=== PATIENT | female | born 1945 | race Two or more races ===

== ENCOUNTER → 2020-09-12 12:15 | Outpatient (BNVA) | payer MEDICARE, MEDICAID, SELFPAY | PROVIDERS: PCP Physician Assistant; Referring Provider Physician Assistant; Visit Provider Internal Medicine Endocrinology, Diabetes & Metabolism | DX: E03.9 Hypothyroidism, unspecified (principal); E06.3 Autoimmune thyroiditis | CPT/HCPCS: 99212 ==

== ENCOUNTER 2021-01-14 10:59 | Outpatient (REF) | payer MEDICARE, MEDICAID, SELFPAY ==
--- NOTE | ~2021-01-14 | XR_ITS ---
EXAMINATION: XR SHOULDER, LEFT CLINICAL INFORMATION: Pain COMPARISON: 11/10/2018 TECHNIQUE: AP external rotation, Grashey, scapular Y, and axillary views of the left shoulder. FINDINGS: No acute fracture or dislocation. Marginal osteophytes of the acromioclavicular and glenohumeral joints. Deltoid tendon original enthesopathy. Soft tissues unremarkable. XR/XR shoulder LT min 2V IMPRESSION: No acute findings. Marginal osteophytes of the glenohumeral and acromioclavicular joints.
--- NOTE | ~2021-01-14 | XR_ITS ---
EXAMINATION: XR RIBS, LEFT CLINICAL INFORMATION: Pleurodynia COMPARISON: 10/26/2019 TECHNIQUE: PA view of the chest and 3 views of the left ribs were obtained. FINDINGS: Streaky opacity present within the right upper lobe. Left lung clear. No pneumothorax, or pleural effusion. The cardiomediastinal silhouette and pulmonary vasculature are normal. Osseous structures are unremarkable. Ribs are intact. No fractures are identified. XR/XR ribs LT min 3V w CXR1V IMPRESSION: No displaced rib fractures. Streaky opacities within right upper lobe compatible with an infiltrate.
[2021-01-14 11:58] LABS: MANUAL DIFF FLAG NO
[2021-01-14 12:03] LABS: Basophils Absolute Auto 0.1 X10*3/uL (0.0-0.2); Basophils Percent Auto 1.6 % (0-2); Eosinophils Absolute Auto 0.3 X10*3/uL (0.0-0.4); Eosinophils Percent Auto 4.5 % (0-4); Hematocrit 43.8 % (37-47); Hemoglobin 14.2 g/dl (12.0-16.0); Imm Gran Abs Auto 0.03 X10*3/uL (0.00-0.03); Imm Gran Pct Auto 0.5 % (0.0-0.4); Lymphocytes Absolute Auto 1.9 X10*3/uL (1.2-4.9); Lymphocytes Percent Auto 29.9 % (20-40); Mean Corpuscular HGB Conc 32.4 g/dl (31.0-35.0); Mean Corpuscular Hemoglobin 30.5 pg (27.0-33.0); Mean Platelet Volume 9.9 fL (9.4-12.3); Monocytes Absolute Auto 0.6 X10*3/uL (0.1-1.2); Neutrophils Absolute Auto 3.4 X10*3/uL (2.0-8.3); Neutrophils Percent Auto 54.5 % (45-73); Platelet Count 306 X10*3/uL (160-400); Red Blood Count 4.66 X10*6/uL (4.20-5.50); White Blood Count 6.2 X10*3/uL (4.8-10.8)
[2021-01-14 12:08] LABS: Estimated Average Glucose 157 mg/dL; Hemoglobin A1c % 7.1 %
[2021-01-14 12:43] LABS: TSH reflex Free T4 5.56 uIU/mL (0.32-4.0)
[2021-01-14 12:45] LABS: Alanine Aminotransferase 21 U/L (0-31); Albumin Level 4.5 g/dL (3.5-5.0); Alkaline Phosphatase 89 U/L (39-117); Anion Gap 13 (12-20); Aspartate Amino Transferase 16 U/L (5-31); Bilirubin Total 0.3 mg/dL (0.0-1.0); Blood Urea Nitrogen 21 mg/dL (9-16); Calcium 9.5 mg/dL (8.4-10.2); Carbon Dioxide 30 mmol/L (22-29); Chloride 101 mmol/L (96-108); Cholesterol 238 mg/dL; Estimated Glomerular Filt Rate > 60; Glucose Fasting 174 mg/dL (60-99); HDL Cholesterol 50 mg/dL; LDL Cholesterol Calculated 149 mg/dl; Potassium 4.1 mmol/L (3.3-5.1); Sodium 140 mmol/L (135-145); Total Protein 8.2 g/dL (6.5-8.0); Triglycerides 196 mg/dL
== END 2021-01-14 11:00 | disposition home or self-care (01) ==
LOC: HO.LAB 10:59
PROVIDERS: Absent Provider Internal Medicine Endocrinology, Diabetes & Metabolism; PCP Physician Assistant; Visit Provider Physician Assistant
DX: E03.9 Hypothyroidism, unspecified (principal); E06.3 Autoimmune thyroiditis; E11.9 Type 2 diabetes mellitus without complications; E78.00 Pure hypercholesterolemia, unspecified; R07.81 Pleurodynia; M25.512 Pain in left shoulder; M79.622 Pain in left upper arm
CPT/HCPCS: 36415; 71101; 73030; 80053; 80061; 83036; 84439; 84443; 85025

== ENCOUNTER 2021-02-05 14:07 | Outpatient (REF) | payer MEDICARE, MEDICAID, SELFPAY ==
--- NOTE | ~2021-02-05 | US_ITS ---
EXAMINATION: ULTRASOUND PELVIS, COMPLETE CLINICAL INFORMATION: Right lower quadrant pain COMPARISON: None TECHNIQUE: Transabdominal and transvaginal imaging. FINDINGS: Uterus normal in size and configuration measuring 5.1 x 2.6 x 2.5 cm. The endometrial signature measures 2 mm. There is a small echogenic focus within the uterus which may represent a small calcified uterine fibroid. No uterine or endometrial mass is evident. Nabothian cysts present within the cervix. Ovaries not seen. US/US pelvic and transvaginal IMPRESSION: No etiology for the patient's right lower quadrant pain. Ovaries not seen, however there is no obvious adnexal mass lesion.
--- NOTE | ~2021-02-05 | XR_ITS ---
EXAMINATION: XR KNEE, RIGHT CLINICAL INFORMATION: Pain in right knee COMPARISON: None TECHNIQUE: Four views of the right knee. FINDINGS: No acute fracture or subluxation. Moderate medial compartment joint space narrowing. Small tricompartmental marginal osteophytes. No joint effusion. The soft tissues are unremarkable. XR/XR knee RT 2V IMPRESSION: Mild to moderate tricompartmental degenerative changes, with narrowing at the medial compartment.
== END 2021-02-05 14:08 | disposition home or self-care (01) ==
LOC: HO.US 14:07
PROVIDERS: Visit Provider Nurse Practitioner Family
DX: M25.561 Pain in right knee (principal); R10.31 Right lower quadrant pain
CPT/HCPCS: 73560; 76830; 76856

== ENCOUNTER 2021-03-06 14:00 | Outpatient (RCR) | payer MEDICARE, MEDICAID, SELFPAY ==
--- NOTE | 2020-11-13 07:51 | MHC.PT.EP ---
[facility] [place] Office [place] Office [place] Office [address] Am[address] Browne [address] [phone] F: [phone] F: [phone] F: [phone] F: [phone] Physical Therapy Plan of Care Date of Evaluation: 11/12/20 Date of Surgery: none Diagnosis: gait and mobility abnormalities. Assessment: Patient is a year old R handed female who presents with s/s consistent with balance impairment, gait deformity. She is fairly sedentary and only walks with someone to hold on to. She does not use an AD because of L sided weakness and her own fear of falling without holding on to someone. Patient past medical history includes suspected CVA, asthma, osteopenia, DM, merlene's disease. Current impairments include pain, ROM, strength, balance, safety, independence, activity tolerance and functional mobility. Functional limitations include decreased ability to walk, stand, transfer, negotiate stairs, and perform weight bearing activities.. Patient is motivated with good rehab potential. Skilled PT will address impairments and functional limitations in order to achieve goals. Frequency and Duration: The patient will be seen 2x/week for 6 weeks Short Term Goals: I with HEP - 2 weeks Able to bike 10 minutes - 2 weeks L LE strength 3+/5 grossly - 3 weeks Signal Fitter Goals: L LE strength 4-/5 - 6 weeks DGI 20/24 - 6 weeks Subjective improvement in at home mobility with safety, fall frequency - 6 weeks Treatment Plan: Modalities to reduce pain, spasms and effusion. Manual therapy to restore motion and function. Therapeutic exercise to improve strength and flexibility. Neuromuscular re-education for posture and balance. Therapeutic activities to return to functional activities of daily living. Electronically signed by: Mehdi Maxwell, PT Please sign and return to therapist. Thank you for your referral.
--- NOTE | 2021-03-23 13:32 | MHC.PT.DC ---
[facility] [place] Office [place] Office [place] Office [address] Leonid Browne 140 [facility] [phone] F: [phone] F: [phone] F: [phone] F: [phone] Physical Therapy Discharge Report Diagnosis: gait and mobility abnormalities. Date of Surgery: none Date of Evaluation: 11/12/20 Date of Discharge: 03/09/21 Treatments to Date: 15 Cancellations to Date: 1 No Shows to Date: 0 Discharge Status: Visit Non-compliance Discharge Summary: pt was unable to attend consistently to achieve optimal progress. Electronically signed by: Mehdi Maxwell PT Please sign and return to therapist. Thank you for your referral.
== END 2021-03-28 10:51 | disposition home or self-care (01) ==
LOC: HO.PTCHIC 14:00
PROVIDERS: PCP Physician Assistant; Visit Provider Physician Assistant
DX: R26.89 Other abnormalities of gait and mobility (principal)
CPT/HCPCS: 97110; 97112; 97163

== ENCOUNTER 2021-03-20 12:21 | Outpatient (REF) | payer MEDICARE, MEDICAID, SELFPAY ==
[2021-03-20 14:31] LABS: MANUAL DIFF FLAG NO
[2021-03-20 14:35] LABS: Basophils Absolute Auto 0.1 X10*3/uL (0.0-0.2); Basophils Percent Auto 1.3 % (0-2); Eosinophils Absolute Auto 0.2 X10*3/uL (0.0-0.4); Eosinophils Percent Auto 3.3 % (0-4); Hematocrit 41.2 % (37-47); Hemoglobin 13.6 g/dl (12.0-16.0); Imm Gran Abs Auto 0.02 X10*3/uL (0.00-0.03); Imm Gran Pct Auto 0.3 % (0.0-0.4); Lymphocytes Absolute Auto 1.3 X10*3/uL (1.2-4.9); Lymphocytes Percent Auto 21.8 % (20-40); Mean Corpuscular Hemoglobin 30.6 pg (27.0-33.0); Mean Corpuscular Volume 92.6 fL (80-98); Mean Platelet Volume 10.4 fL (9.4-12.3); Monocytes Absolute Auto 0.6 X10*3/uL (0.1-1.2); Neutrophils Absolute Auto 3.9 X10*3/uL (2.0-8.3); Neutrophils Percent Auto 64.3 % (45-73); Platelet Count 298 X10*3/uL (160-400); Red Blood Count 4.45 X10*6/uL (4.20-5.50); Red Cell Distribution Width 12.3 % (11.0-16.0); White Blood Count 6.1 X10*3/uL (4.8-10.8)
[2021-03-20 14:57] LABS: Alanine Aminotransferase 25 U/L (0-31); Albumin Level 4.2 g/dL (3.5-5.0); Alkaline Phosphatase 110 U/L (39-117); Anion Gap 13 (12-20); Aspartate Amino Transferase 19 U/L (5-31); Bilirubin Total 0.3 mg/dL (0.0-1.0); Blood Urea Nitrogen 21 mg/dL (9-16); Calcium 9.2 mg/dL (8.4-10.2); Carbon Dioxide 28 mmol/L (22-29); Chloride 100 mmol/L (96-108); Cholesterol 242 mg/dL; Estimated Glomerular Filt Rate 51; Glucose Fasting 228 mg/dL (60-99); HDL Cholesterol 49 mg/dL; LDL Cholesterol Calculated 127 mg/dl; Potassium 4.4 mmol/L (3.3-5.1); Sodium 137 mmol/L (135-145); Total Protein 7.7 g/dL (6.5-8.0); Triglycerides 334 mg/dL
[2021-03-20 14:59] LABS: Creatinine Urine 182.06 mg/dL; Microalbum/Creatinine Ratio Ur 16.4 ug/mg cr
[2021-03-20 15:18] LABS: Thyroid Stimulating Hormone 14.51 uIU/mL (0.32-4.0)
== END 2021-03-20 12:22 | disposition home or self-care (01) ==
LOC: HO.LAB 12:21
PROVIDERS: Nurse Practitioner Family; PCP Physician Assistant; Visit Provider Internal Medicine Endocrinology, Diabetes & Metabolism
DX: E03.8 Other specified hypothyroidism (principal); E06.3 Autoimmune thyroiditis; E11.9 Type 2 diabetes mellitus without complications; E78.00 Pure hypercholesterolemia, unspecified; Z79.899 Other long term (current) drug therapy
CPT/HCPCS: 36415; 80053; 80061; 82043; 84439; 84443; 85025; 99212

== ENCOUNTER 2021-05-29 16:17 | Outpatient (REF) | payer MEDICARE, MEDICAID, SELFPAY | END 2021-05-29 16:18 | disposition home or self-care (01) | LOC: HO.MRI 16:17 | PROVIDERS: PCP Physician Assistant; Visit Provider Physician Assistant | DX: Z13.89 Encounter for screening for other disorder (principal) ==

== ENCOUNTER 2021-05-29 16:17 | Outpatient (REF) | payer MEDICARE, MEDICAID, SELFPAY | END 2021-05-29 16:18 | disposition home or self-care (01) | LOC: HO.MRI 16:17 | PROVIDERS: PCP Physician Assistant; Visit Provider Physician Assistant | DX: Z13.89 Encounter for screening for other disorder (principal) ==

== ENCOUNTER 2021-06-01 15:21 | Inpatient (IN) | payer MEDICARE, MEDICAID, SELFPAY ==
--- NOTE | ~2021-06-01 | CT_ITS ---
EXAMINATION: CT ABDOMEN AND PELVIS WITHOUT CONTRAST CLINICAL INFORMATION: abd pain and elevated wbcs . COMPARISON: 11/29/2018. TECHNIQUE: Multidetector volumetric imaging was performed from the superior aspect of the liver through the pubic symphysis without contrast per request. Sagittal and coronal reformatted images were obtained on the technologist workstation. This CT examination was performed using dose optimization techniques as appropriate, variously including the following: *Automated exposure control *Adjustment of mA and/or kV according to patient size (this includes techniques or standardized protocols for targeted exams where dose is matched to indication/reason for exam; i.e. extremities or head) *Use of iterative reconstruction technique DLP: 795 mGy-cm. FINDINGS: LUNG BASES: Linear scarring or atelectasis. Small hiatal hernia. LIVER, GALLBLADDER, BILIARY TREE: Diffuse fatty infiltration of the liver without focal hepatic lesion nor biliary ductal dilatation. The gallbladder surgically absent. PANCREAS: Unremarkable. SPLEEN: Unremarkable. ADRENAL GLANDS: Unremarkable. KIDNEYS AND URETERS: The kidneys are normal in size, shape, and attenuation. No hydronephrosis, hydroureter, or calculi seen. No perinephric stranding. BLADDER: Decompressed GASTROINTESTINAL TRACT: Colon is redundant. I do not appreciate any focal colonic wall thickening or pericolonic inflammatory change. ABDOMINAL WALL: No significant hernia is appreciated. LYMPHOVASCULAR STRUCTURES: Mild vascular calcification seen within the aorta. PELVIC VISCERA: Unremarkable. OSSEUS STRUCTURES: Unremarkable. CT/CT abdomen pelvis wo con IMPRESSION: Mild chronic appearing changes as described. No acute process seen when compared to the 11/29/2018 examination..
--- NOTE | ~2021-06-01 | XR_ITS ---
EXAMINATION: PORTABLE CHEST 1 VIEW CLINICAL INFORMATION: Fever, cough . COMPARISON: 01/14/2021. TECHNIQUE: Portable frontal view of the chest was obtained. FINDINGS: Lungs mildly hypoexpanded. There is a new focal opacity overlying the right upper lobe which was not seen on the prior study. The acute setting, focal consolidation would be suspected. I do not appreciate any significant effusion edema or pneumothorax. Cardiac and mediastinal silhouettes within normal limits for size. No acute bony abnormality. XR/XR chest 1V IMPRESSION: Although hypoexpanded, there is new focal opacity in the left upper lobe. In the acute setting, infectious etiology would be suspected. Clinical correlation and follow-up imaging after treatment would be helpful to ensure its resolution.
[2021-06-01 15:34] VITALS: BP 148/67; PULSE 100; RESP 18; TEMP 36.6; O2SAT 97; BMI 37.8
[2021-06-01 15:44] LABS: Glucose, Whole Blood 430 mg/dL (60-115)
--- NOTE | 2021-06-01 18:07 | ED.GENADULT ---
HPI - General Adult General Chief complaint: General Medical Stated complaint: not eating, confusion Time Seen by Provider: 06/01/21 18:01 Source: patient, family (Daughter) and educational sign language interpreter Mode of arrival: ambulatory Limitations: no limitations History of Present Illness HPI narrative: 75-year-old female came in with her daughter for evaluation of generalized weakness, increased confusion, worsening of unsteady gait, elevated blood sugar. This is a 75-year-old female with history of CVA with residual left hemiparesis, type 2 diabetes patient was prescribed [facility] for new medication to control her diabetes (daughter will need teaching to inject the medicine). Patient in the emergency department is back to her normal baseline, no confusion, no abdominal pain, normal unsteady gait which is secondary to left-sided weakness. Blood sugar was noted to be elevated (patient did not receive her diabetes medicine today). Reportedly by the daughter patient is scheduled to have MRI and patient will need sedation during the MRI (unable to to see the MRI order in the chart). Related Data Home Medications Medication Instructions Recorded Confirmed omeprazole 20 mg capsule,delayed 20 mg PO DAILY 08/25/20 05/21/21 release Previous Rx's Medication Instructions Recorded naproxen 500 mg tablet 500 mg PO BID 7 Days #14 tab 11/17/20 triamcinolone acetonide 0.1 % 1 appl TOPICAL DAILY 30 Days #80 g 12/30/20 topical cream ibuprofen 800 mg tablet 800 mg PO Q8H PRN 15 Days #30 tab 01/19/21 chair, wheel #1 ea 01/28/21 levothyroxine 100 mcg tablet 100 mcg PO DAILY 90 Days #90 tab 03/23/21 mirtazapine 7.5 mg tablet 7.5 mg PO BEDTIME 30 Days #30 tab 04/01/21 amlodipine 2.5 mg tablet 2.5 mg PO DAILY 90 Days #90 tab 05/21/21 blood-glucose meter #1 ea 05/21/21 dulaglutide 0.75 mg/0.5 mL 0.75 mg SUBCUT QWEEK 28 Days #2 ml 05/21/21 subcutaneous pen injector lancets 28 gauge #100 ea 05/21/21 metformin 500 mg tablet 1,000 mg PO BID 30 Days #120 tab 05/21/21 miscellaneous medical supply 1 ea MISCELLANEOUS .daily 90 Days 05/21/21 #90 ea miscellaneous medical supply 1 ea MISCELLANEOUS DAILY 99 Days 05/21/21 #1 ea pravastatin 40 mg tablet 40 mg PO DAILY #90 tab 05/21/21 Allergies Allergy/AdvReac Type Severity Reaction Status Date / Time atorvastatin Allergy Unknown rash Verified 05/21/21 14:59 simvastatin Allergy Unknown rash Verified 05/21/21 14:59 Review of Systems Review of Systems: All other systems are reviewed and are negative Constitutional: Reports as per HPI and Reports no additional constitutional complaints Eyes: Reports as per HPI and Reports no additional eye complaints Reports system reviewed and no additional complaints, except as documented Cardiovascular: Reports as per HPI and Reports no additional cardiovascular complaints Respiratory: Reports as per HPI and Reports no additional respiratory complaints Gastrointestinal: Reports as per HPI and Reports no additional gastrointestinal complaints Genitourinary: Reports no additional female genitourinary complaints Musculoskeletal: Reports no additional musculoskeletal complaints Skin/Breast: Reports system reviewed and no additional complaints, except as docu Psychiatric: Reports no additional psychiatric complaints Endocrine: Reports no additional endocrine complaints Hematologic/Lymphatic: Reports no additional hematologic/lymphatic complaints Allergic/Immunologic: Reports no additional allergic/immunologic complaints Reports system reviewed and no additional complaints, except as documented and Reports Abnormal speech present [facility] Past Medical History Medical History Diabetes High cholesterol Knee pain, right Right groin pain Surgical History Hx of section Hx of cholecystectomy Hx of eye surgery Family History Family History Father No problems noted. Mother Diabetes Hypertension Maternal Aunt Cancer Social History Social History Housing: House Alcohol intake: never Patient Tobacco Use Status: Never used Tobacco e-Cigarette/Vaping Use: Never Used Second Hand Smoke Exposure: No Advance Directives: No Advance Directives Information Provided: Yes Current occupational status: disabled Physical Exam Vital Signs: Vital Signs: Last Vital Signs Temp 101.9 F H 06/01/21 21:58 Pulse 105 H 06/01/21 20:16 Resp 16 06/01/21 20:16 BP 128/73 06/01/21 20:16 Pulse Ox 96 06/01/21 20:16 Body Mass Index 37.8 Vital signs have been reviewed as appeared to be correct. Blood pressure normal. Heart rate normal. Respiration rate normal. Temperature normal. Oxygen saturation normal. Appearance: Alert. Oriented X3. No acute distress. Head: Normal external exam. Normocephalic. Atraumatic. No Barnes signs noted. No raccoon eyes noted Eyes: PERRLA. EOMI. Conjunctiva and sclera normal. Eyelids normal. ENT: TM's Normal. Pharynx normal. Uvula midline. Moist mucous membranes. No trismus noted. No drooling noted. No muffled voice noted. Neck: Normal inspection. Neck supple. FROM. No adenopathy. Thyroid Normal. No meningeal signs. No neck mass noted. CVS: Normal heart rate and rhythm. Heart sound normal. No murmurs noted. Pulses normal throughout. Respiratory: No respiratory distress. Painless inspiration. Breath sounds normal. No wheezes/rales/rhonchi noted. Chest nontender. No accessory muscle usage noted or decreased air movement noted. Abdomen: Soft and nontender. Bowel sounds normal in all 4 quadrants. No distention noted. No organomegaly noted. No visible injury noted. Back: No CVA tenderness. Full range of motion noted. Skin: Skin warm and dry. Normal skin color. Normal skin turgor. No rashes/lesions/lacerations noted. Extremities: No lower extremity edema. Extremities exhibit normal range of motion. Extremities nontender. Neuro: Oriented X 3. Pre-existing left hemiparesis. Course Course Course Narrative: Assessment plan. [age] year poor historian with history of CVA and left hemiparesis came in with increased confusion and high blood sugar, patient to be febrile in meeting criteria for SIRS, chest x-ray was resulted at 22:00 with pneumonia, therefore patient was diagnosed with pneumonia with sepsis patient was given IV antibiotic and IV hydration. Medical Decision Making Lab Data Lab results reviewed: Yes I reviewed the patient's lab results. Result diagrams: 06/01/21 19:11 06/01/21 19:11 Labs: Lab Results 06/01/21 06/01/21 06/01/21 Range/Units 15:39 19:11 19:11 WBC 16.1 H (4.8-10.8) X10*3/uL RBC 4.65 (4.20-5.50) X10*6/uL Hgb 14.4 (12.0-16.0) g/dl Hct 42.2 (37-47) % MCV 90.8 (80-98) fL MCH 31.0 (27.0-33.0) pg MCHC 34.1 (31.0-35.0) g/dl RDW 12.2 (11.0-16.0) % Plt Count 244 (160-400) X10*3/uL MPV 10.2 (9.4-12.3) fL Immature Gran % (Auto) 0.5 H (0.0-0.4) % Neut % (Auto) 86.1 H (45-73) % Lymph % (Auto) 4.5 L (20-40) % [place] % (Auto) 8.4 (2-11) % Eos % (Auto) 0.2 (0-4) % Baso % (Auto) 0.3 (0-2) % Lymph # (Auto) 0.7 L (1.2-4.9) X10*3/uL [place] # (Auto) 1.4 H (0.1-1.2) X10*3/uL Eos # (Auto) 0.0 (0.0-0.4) X10*3/uL Baso # (Auto) 0.1 (0.0-0.2) X10*3/uL Abs Immat Gran (auto) 0.08 H (0.00-0.03) X10*3/uL Absolute Neuts (auto) 13.9 H (2.0-8.3) X10*3/uL Absolute Nucleated RBC 0.000 (0.0-0.012) X10*3/uL Nucleated RBC % (auto) 0.0 (0.0-0.2) /100WBC Hold Purple Top SEE NOTE Sodium (135-145) mmol/L Potassium (3.3-5.1) mmol/L Chloride (96-108) mmol/L Carbon Dioxide (22-29) mmol/L Anion Gap (12-20) BUN (9-16) mg/dL Creatinine (0.5-1.4) mg/dL Estim Creat Clear Calc Estimated GFR POC Glucose 430 H* (60-115) mg/dL Random Glucose (60-115) mg/dL Lactic Acid (0.5-2.0) mmol/L Calcium (8.4-10.2) mg/dL Total Bilirubin (0.0-1.0) mg/dL AST (5-31) U/L ALT (0-31) U/L Alkaline Phosphatase (39-117) U/L Total Protein (6.5-8.0) g/dL Albumin (3.5-5.0) g/dL Urine Color Urine Appearance Urine pH (5.0-8.0) Ur Specific [place] (1.005-1.025) Urine Protein (NEG-TRACE) MG/DL Urine Glucose (UA) (NEG) MG/DL Urine Ketones (NEG) MG/DL Urine Blood (NEG) Urine Nitrite (NEG) Ur Leukocyte Esterase (NEG) Urine RBC (0) /HPF Urine WBC (0-4) /HPF Ur Squamous Epith Cells /LPF Urine Bacteria /LPF 06/01/21 06/01/21 06/01/21 Range/Units 19:11 20:17 21:37 WBC (4.8-10.8) X10*3/uL RBC (4.20-5.50) X10*6/uL Hgb (12.0-16.0) g/dl Hct (37-47) % MCV (80-98) fL MCH (27.0-33.0) pg MCHC (31.0-35.0) g/dl RDW (11.0-16.0) % Plt Count (160-400) X10*3/uL MPV (9.4-12.3) fL Immature Gran % (Auto) (0.0-0.4) % Neut % (Auto) (45-73) % Lymph % (Auto) (20-40) % [place] % (Auto) (2-11) % Eos % (Auto) (0-4) % Baso % (Auto) (0-2) % Lymph # (Auto) (1.2-4.9) X10*3/uL [place] # (Auto) (0.1-1.2) X10*3/uL Eos # (Auto) (0.0-0.4) X10*3/uL Baso # (Auto) (0.0-0.2) X10*3/uL Abs Immat Gran (auto) (0.00-0.03) X10*3/uL Absolute Neuts (auto) (2.0-8.3) X10*3/uL Absolute Nucleated RBC (0.0-0.012) X10*3/uL Nucleated RBC % (auto) (0.0-0.2) /100WBC Hold Purple Top Sodium 134 L (135-145) mmol/L Potassium 4.3 (3.3-5.1) mmol/L Chloride 95 L (96-108) mmol/L Carbon Dioxide 28 (22-29) mmol/L Anion Gap 15 (12-20) BUN 12 (9-16) mg/dL Creatinine 1.15 (0.5-1.4) mg/dL Estim Creat Clear Calc 48.5 Estimated GFR 46 POC Glucose 343 H (60-115) mg/dL Random Glucose 397 H* (60-115) mg/dL Lactic Acid (0.5-2.0) mmol/L Calcium 9.3 (8.4-10.2) mg/dL Total Bilirubin 0.5 (0.0-1.0) mg/dL AST 25 (5-31) U/L ALT 37 H (0-31) U/L Alkaline Phosphatase 107 (39-117) U/L Total Protein 7.6 (6.5-8.0) g/dL Albumin 4.2 (3.5-5.0) g/dL Urine Color YELLOW Urine Appearance CLEAR Urine pH 6.0 (5.0-8.0) Ur Specific [place] 1.015 (1.005-1.025) Urine Protein NEG (NEG-TRACE) MG/DL Urine Glucose (UA) >=1000 H (NEG) MG/DL Urine Ketones >=80 (NEG) MG/DL Urine Blood TRACE (NEG) Urine Nitrite NEG (NEG) Ur Leukocyte Esterase NEG (NEG) Urine RBC 0-2 (0) /HPF Urine WBC 0-2 (0-4) /HPF Ur Squamous Epith Cells TRACE /LPF Urine Bacteria NONE /LPF 06/01/ Range/Units 22:26 WBC (4.8-10.8) X10*3/uL RBC (4.20-5.50) X10*6/uL Hgb (12.0-16.0) g/dl Hct (37-47) % MCV (80-98) fL MCH (27.0-33.0) pg MCHC (31.0-35.0) g/dl RDW (11.0-16.0) % Plt Count (160-400) X10*3/uL MPV (9.4-12.3) fL Immature Gran % (Auto) (0.0-0.4) % Neut % (Auto) (45-73) % Lymph % (Auto) (20-40) % [place] % (Auto) (2-11) % Eos % (Auto) (0-4) % Baso % (Auto) (0-2) % Lymph # (Auto) (1.2-4.9) X10*3/uL [place] # (Auto) (0.1-1.2) X10*3/uL Eos # (Auto) (0.0-0.4) X10*3/uL Baso # (Auto) (0.0-0.2) X10*3/uL Abs Immat Gran (auto) (0.00-0.03) X10*3/uL Absolute Neuts (auto) (2.0-8.3) X10*3/uL Absolute Nucleated RBC (0.0-0.012) X10*3/uL Nucleated RBC % (auto) (0.0-0.2) /100WBC Hold Purple Top Sodium (135-145) mmol/L Potassium (3.3-5.1) mmol/L Chloride (96-108) mmol/L Carbon Dioxide (22-29) mmol/L Anion Gap (12-20) BUN (9-16) mg/dL Creatinine (0.5-1.4) mg/dL Estim Creat Clear Calc Estimated GFR POC Glucose (60-115) mg/dL Random Glucose (60-115) mg/dL Lactic Acid 1.2 (0.5-2.0) mmol/L Calcium (8.4-10.2) mg/dL Total Bilirubin (0.0-1.0) mg/dL AST (5-31) U/L ALT (0-31) U/L Alkaline Phosphatase (39-117) U/L Total Protein (6.5-8.0) g/dL Albumin (3.5-5.0) g/dL Urine Color Urine Appearance Urine pH (5.0-8.0) Ur Specific [place] (1.005-1.025) Urine Protein (NEG-TRACE) MG/DL Urine Glucose (UA) (NEG) MG/DL Urine Ketones (NEG) MG/DL Urine Blood (NEG) Urine Nitrite (NEG) Ur Leukocyte Esterase (NEG) Urine RBC (0) /HPF Urine WBC (0-4) /HPF Ur Squamous Epith Cells /LPF Urine Bacteria /LPF Imaging Data Chest x-ray: Radiologist's impression: Although hypoexpanded, there is new focal opacity in the left upper lobe. In the acute setting, infectious etiology would be suspected. Clinical correlation and follow-up imaging after treatment would be helpful to ensure its resolution. CT scan - abdomen: Radiologist's impression: Mild chronic appearing changes as described. No acute process seen when compared to the 11/29/2018 examination.. Discharge Plan Discharge Clinical Impression: Pneumonia, Acute hyperglycemia Patient Disposition: Admitted As Inpatient Prescriptions: No Action (DME) Wheel chair Kit See Rx Instructions .ROUTE .MEDSUPPLY Qty: 1 RF: 0 levothyroxine 100 mcg tablet 100 mcg PO DAILY 90 Days Qty: 90 RF: 3 mirtazapine 7.5 mg tablet 7.5 mg PO BEDTIME 30 Days Qty: 30 RF: 3 omeprazole 20 mg capsule,delayed release(DR/EC) 20 mg PO DAILY RF: 0 naproxen 500 mg tablet 500 mg PO BID 7 Days Qty: 14 RF: 0 ibuprofen 800 mg tablet 800 mg PO Q8H PRN (Reason: pain) 15 Days Qty: 30 RF: 0 miscellaneous medical supply Misc 1 ea miscellaneous DAILY 99 Days Qty: 1 RF: 0 (DME) lancets [FreeStyle Lancets] 28 gauge misc See Rx Instructions .ROUTE .MEDSUPPLY Qty: 100 RF: 3 (DME) blood-glucose meter [FreeStyle Lite Meter] Kit See Rx Instructions .ROUTE .MEDSUPPLY Qty: 1 RF: 0 miscellaneous medical supply Misc 1 ea miscellaneous .daily 90 Days Qty: 90 RF: 3 metformin 500 mg tablet 1,000 mg PO BID 30 Days Qty: 120 RF: 1 Trulicity 0.75 mg/0.5 mL pen injector 0.75 mg subcut QWEEK 28 Days Qty: 2 RF: 3 amlodipine 2.5 mg tablet 2.5 mg PO DAILY 90 Days Qty: 90 RF: 1 pravastatin 40 mg tablet 40 mg PO DAILY Qty: 90 RF: 1 triamcinolone acetonide 0.1 % cream 1 appl topical DAILY 30 Days Qty: 80 RF: 0
--- NOTE | 2021-06-01 19:18 | PC.NURSE ---
IV established, labs obtained. NSR on the monitor. Pt aware of urine sample, per daughter, to be obtained by bedpan or straight cath.
[2021-06-01 19:19] VITALS: PULSE 100; RESP 20; TEMP 37.2; O2SAT 97
[2021-06-01 19:26] LABS: MANUAL DIFF FLAG NO
[2021-06-01 19:27] LABS: Basophils Absolute Auto 0.1 X10*3/uL (0.0-0.2); Basophils Percent Auto 0.3 % (0-2); Eosinophils Percent Auto 0.2 % (0-4); Hematocrit 42.2 % (37-47); Hemoglobin 14.4 g/dl (12.0-16.0); Imm Gran Abs Auto 0.08 X10*3/uL (0.00-0.03); Imm Gran Pct Auto 0.5 % (0.0-0.4); Lymphocytes Absolute Auto 0.7 X10*3/uL (1.2-4.9); Lymphocytes Percent Auto 4.5 % (20-40); Mean Corpuscular HGB Conc 34.1 g/dl (31.0-35.0); Mean Corpuscular Volume 90.8 fL (80-98); Mean Platelet Volume 10.2 fL (9.4-12.3); Monocytes Absolute Auto 1.4 X10*3/uL (0.1-1.2); Monocytes Percent Auto 8.4 % (2-11); Neutrophils Absolute Auto 13.9 X10*3/uL (2.0-8.3); Neutrophils Percent Auto 86.1 % (45-73); Platelet Count 244 X10*3/uL (160-400); Red Blood Count 4.65 X10*6/uL (4.20-5.50); Red Cell Distribution Width 12.2 % (11.0-16.0); White Blood Count 16.1 X10*3/uL (4.8-10.8)
[2021-06-01 20:02] LABS: Alanine Aminotransferase 37 U/L (0-31); Albumin Level 4.2 g/dL (3.5-5.0); Alkaline Phosphatase 107 U/L (39-117); Anion Gap 15 (12-20); Aspartate Amino Transferase 25 U/L (5-31); Bilirubin Total 0.5 mg/dL (0.0-1.0); Blood Urea Nitrogen 12 mg/dL (9-16); Calcium 9.3 mg/dL (8.4-10.2); Carbon Dioxide 28 mmol/L (22-29); Chloride 95 mmol/L (96-108); Creatinine Clr Calc Pharmacy 48.5; Estimated Glomerular Filt Rate 46; Glucose Random 397 mg/dL (60-115); Potassium 4.3 mmol/L (3.3-5.1); Sodium 134 mmol/L (135-145); Total Protein 7.6 g/dL (6.5-8.0)
--- NOTE | 2021-06-01 20:05 | PC.NURSE ---
Pt medicated with Trulicity per MD order. This RN teaching daughter how to administer pen. Per MD, plan for straight cath to obtain UA.
[2021-06-01 20:16] VITALS: BP 128/73; PULSE 105; RESP 16; O2SAT 96
--- NOTE | 2021-06-01 20:17 | PC.NURSE ---
UA obtained via straight cath. Pt tolerating well. VSS at this time.
--- NOTE | 2021-06-01 20:37 | PC.NURSE ---
Pt returns from CT on hospital bed at this time.
[2021-06-01 20:43] LABS: Glucose Urine UA >=1000 MG/DL (NEG); Leukocyte Esterase Urine NEG (NEG); Nitrite Urine NEG (NEG); Specific Gravity - Urine 1.015 (1.005-1.025); Urine Blood TRACE (NEG); Urine Ketones >=80 MG/DL (NEG); Urine Protein NEG (NEG-TRACE)
[2021-06-01 20:53] LABS: Appearance Urine CLEAR; Color Urine YELLOW
[2021-06-01 21:09] LABS: RBC Urine 0-2 /HPF (0); Squamous Epithelial Cell Urine TRACE /LPF; WBC Urine 0-2 /HPF (0-4)
--- NOTE | 2021-06-01 21:40 | PC.NURSE ---
MD aware of POC 343 mg/dl. Per MD, plan for PO Metformin at this time.
[2021-06-01 21:41] LABS: Glucose, Whole Blood 343 mg/dL (60-115)
[2021-06-01] MEDS: metFORMIN HCl 1,000 MG TABLET 1000 MG PO (21:51)
[2021-06-01] MEDS: Acetaminophen 325 MG TABLET 650 MG PO (21:51)
--- NOTE | 2021-06-01 21:54 | PC.NURSE ---
Pt medicated per MAR.
[2021-06-01 21:58] VITALS: TEMP 38.8
--- NOTE | 2021-06-01 22:00 | PC.NURSE ---
notified of fever and tachycardia @ 105 bpm. Plan for CXR, BCX and lactic.
--- NOTE | 2021-06-01 22:09 | PC.NURSE ---
XRay at beside. Pt and family aware of plan for BCX and Covid swab.
[2021-06-01 22:51] LABS: Lactic Acid 1.2 mmol/L (0.5-2.0)
[2021-06-01] MEDS: cefTRIAXone sodium 1 GM in 0.9 % Sodium Chloride 50 ML IV (23:17)
[2021-06-01 23:30] LABS: Influenza A PCR NEGATIVE (Negative); Influenza B PCR NEGATIVE (Negative); Resp Syncy Virus RNA Qual PCR NEGATIVE (Negative); SARS COV2 PCR INHOUSE NEGATIVE (Negative)
[2021-06-01] MEDS: 0.9 % Sodium Chloride 1,000 ML 999 ML IVCONT (23:32)
[2021-06-01] MEDS: Azithromycin 500 MG in 0.9 % Sodium Chloride 250 ML 125 MG IV (23:33)
[2021-06-02] VITALS (8 sets, daily range): BP systolic 95–137; BP diastolic 53–68; PULSE 71–95; RESP 16–20; TEMP 36.6–37.9; O2SAT 95–97
--- NOTE | 2021-06-02 00:10 | PC.NURSE ---
Med Rec completed at bedside with pt.
[2021-06-02 00:33] LABS: Glucose, Whole Blood 405 mg/dL (60-115)
[2021-06-02] MEDS: Insulin Lispro 100 UNIT/ML 3 ML VIAL SUBCUT ×6 (00:50→21:29)
[2021-06-02] MEDS: Enoxaparin Sodium 40 MG/0.4 ML SYRINGE SUBCUT (01:19)
[2021-06-02] MEDS: Mirtazapine 7.5 MG TABLET PO ×2 (01:19→21:28)
--- NOTE | 2021-06-02 01:25 | PC.NURSE ---
This RN contacting pharmacy regarding PO dose of Azithromycin as pt just finished IV Azithromycin. Per pharmacy to hold PO until tomorrow. Pt medicated with PM meds per JAN. Pt resting in POC, aware of plan to admit. Continue to monitor.
--- NOTE | 2021-06-02 05:33 | PC.NURSE ---
Pt sleeping in bed at this time in NAD. Visible chest rise noted. Continue to monitor.
--- NOTE | 2021-06-02 06:03 | PM.IMHP ---
History of Present Illness Date of Service: 06/02/21 Chief Complaint: Confusion 75-year-old Thai-speaking female with past medical history of diabetes, hyperlipidemia, hypothyroidism, HTN, who presents to the hospital with her daughter for confusion. History is obtained mostly with the help of her daughter at bedside but according to her daughter who lives with the patient, patient was confused for the past 2 days, complaining of dizziness, weakness, low appetite. Patient's daughter also complained that she has been having shortness of breath, coughing with minimal sputum production. Patient complains of chills. No nausea no vomiting, no abdominal pain diarrhea constipation, no urinary symptoms and no lower extremity edema. No numbness tingling or specific weakness in any of her extremities. She is not vaccinated for COVID, no recent sick contact and no recent travel. On arrival to the ED patient has a temp of 101.9?, heart rate of 105, respiratory rate of 16, blood pressure 128/73, satting 96% on room air. Labs are significant for WBC count of 16.1, sodium of 134, potassium 4.3, BUN of 12, creatinine of 1.15 0.8, glucose of 405, UA negative, COVID, influenza negative, Chest x-ray showed new focal opacity in the left upper lobe Abdominal pelvic CT shows mild chronic appearing changes with no acute process Past medical history as below and confirmed with patient and her daughter Review of Systems Review of Systems: Yes all other systems are reviewed and are negative [facility] Medical History Diabetes High cholesterol HLD (hyperlipidemia) HTN (hypertension) Hypothyroidism Knee pain, right Lumbar disc disease with radiculopathy MDD (major depressive disorder) Right groin pain Family History Father No problems noted. Mother Diabetes Hypertension Maternal Aunt Cancer Surgical History Hx of section Hx of cholecystectomy Hx of eye surgery Social History Housing: House Alcohol intake: never Patient Tobacco Use Status: Never used Tobacco e-Cigarette/Vaping Use: Never Used Second Hand Smoke Exposure: No Advance Directives: No Advance Directives Information Provided: Yes Current occupational status: disabled Meds Allergies Allergy/AdvReac Type Severity Reaction Status Date / Time atorvastatin Allergy Unknown rash Verified 05/21/21 14:59 simvastatin Allergy Unknown rash Verified 05/21/21 14:59 Active Medications: Current Medications Generic Name Dose Route Start Last Admin Trade Name Freq PRN Reason Stop Dose Admin Acetaminophen 650 mg 06/02/21 00:36 Acetaminophen 325 Mg Tablet PO Q6H PRN Pain, Mild (Pain Scale 1-3) Amlodipine Besylate 2.5 mg 06/02/21 09:00 Amlodipine Besylate 2.5 Mg Tablet PO DAILY [facility] Protocol Azithromycin 500 mg 06/02/21 22:00 Azithromycin 500 Mg Tablet PO Q24H [facility] Docusate Sodium 100 mg 06/02/21 00:36 Docusate Sodium 100 Mg Capsule PO DAILY PRN Constipation Enoxaparin Sodium 40 mg 06/02/21 01:00 06/02/21 01:19 Enoxaparin Sodium 40 Mg/0.4 Ml Syringe SUBCUT 40 mg Q24H [facility] Administration Ceftriaxone Sodium 1 gm/ 50 mls @ 100 mls/hr 06/02/21 22:00 Sodium Chloride IV Q24H [facility] Insulin Human Lispro 0 unit 06/02/21 00:45 06/02/21 00:50 Insulin Lispro 100 Unit/Ml 3 Ml Vial SUBCUT 10 unit QIDACHS [facility] Administration Protocol Levothyroxine Sodium 100 mcg 06/02/21 06:00 Levothyroxine Sodium 100 Mcg Tablet PO DAILY@0600 [facility] Mirtazapine 7.5 mg 06/02/21 00:45 06/02/21 01:19 Mirtazapine 7.5 Mg Tablet PO 7.5 mg BEDTIME [facility] Administration Omeprazole 20 mg 06/02/21 09:00 Omeprazole 20 Mg Capsule.Dr PO DAILY [facility] Ondansetron HCl 4 mg 06/02/21 00:36 Ondansetron Hcl 4 Mg/2 Ml Vial IVPUSH Q8H PRN Nausea and Vomiting Pravastatin Sodium 40 mg 06/02/21 09:00 Pravastatin Sodium 40 Mg Tablet PO DAILY [facility] Sodium Chloride 3 ml 06/02/21 08:00 0.9 % Sodium Chloride Flush 3 Ml Syringe IVFLUSH QSHIFT [facility] Triamcinolone Acetonide 1 appl 06/02/21 09:00 Triamcinolone Acet 0.1 % Cream 15 Gm Tube TOPICAL DAILY [facility] Protocol Home Medications Medication Instructions Recorded Confirmed Last Taken Type omeprazole 20 mg capsule,delayed 20 mg PO DAILY 08/25/20 06/02/21 06/01/21 08:00 History release ibuprofen 800 mg PO NEEDED PRN 06/02/21 06/02/21 05/25/21 History naproxen 500 mg PO NEEDED 06/02/21 06/02/21 05/07/21 History Physical Exam Vital Signs and Narrative: Vital Signs: Last Vital Signs Temp 100.2 F 06/02/21 00:25 Pulse 86 06/02/21 05:10 Resp 16 06/02/21 05:10 BP 95/53 L 06/02/21 05:10 Pulse Ox 97 06/02/21 00:25 Body Mass Index 37.8 Const: General: cooperative and no acute distress Orientation/consciousness: patient oriented x3 Eyes: General: appearance normal, both eyes and all related structures Resp: Effort & Inspection: normal respiratory effort and able to speak in complete sentences Cardio: Rate: regular rate Rhythm: regular rhythm GI: Palpation (GI): Soft to palpation Auscultation: normal bowel sounds Skin: General skin exam: no rashes or lesions noted Neuro: General: patient oriented x3 Cognition (Neuro): normal cognition Extrem: General: Yes normal to inspection and Yes no pedal edema Results Labs CBC and Chem 7: 06/01/21 19:11 06/01/21 19:11 Labs: Laboratory Results - last 24 hr 06/01/21 06/01/21 06/01/21 15:39 19:11 19:11 MCV 90.8 MCH 31.0 MCHC 34.1 RDW 12.2 Plt Count 244 MPV 10.2 Immature Gran % (Auto) 0.5 H Neut % (Auto) 86.1 H Lymph % (Auto) 4.5 L [place] % (Auto) 8.4 Eos % (Auto) 0.2 Baso % (Auto) 0.3 Lymph # (Auto) 0.7 L [place] # (Auto) 1.4 H Eos # (Auto) 0.0 Baso # (Auto) 0.1 Abs Immat Gran (auto) 0.08 H Absolute Neuts (auto) 13.9 H Absolute Nucleated RBC 0.000 Nucleated RBC % (auto) 0.0 Hold Purple Top SEE NOTE Anion Gap Estim Creat Clear Calc Estimated GFR POC Glucose 430 H* Random Glucose Lactic Acid Calcium Total Bilirubin AST ALT Alkaline Phosphatase Total Protein Albumin Urine Color Urine Appearance Urine pH Ur Specific [place] Urine Protein Urine Glucose (UA) Urine Ketones Urine Blood Urine Nitrite Ur Leukocyte Esterase Urine RBC Urine WBC Ur Squamous Epith Cells Urine Bacteria Coronavirus (PCR) Influenza Type A (PCR) Influenza Type B (PCR) RSV RNA Qual (PCR) 06/01/21 06/01/21 06/01/21 19:11 20:17 21:37 MCV MCH MCHC RDW Plt Count MPV Immature Gran % (Auto) Neut % (Auto) Lymph % (Auto) Page % (Auto) Eos % (Auto) Baso % (Auto) Lymph # (Auto) Page # (Auto) Eos # (Auto) Baso # (Auto) Abs Immat Gran (auto) Absolute Neuts (auto) Absolute Nucleated RBC Nucleated RBC % (auto) Hold Purple Top Anion Gap 15 Estim Creat Clear Calc 48.5 Estimated GFR 46 POC Glucose 343 H Random Glucose 397 H* Lactic Acid Calcium 9.3 Total Bilirubin 0.5 AST 25 ALT 37 H Alkaline Phosphatase 107 Total Protein 7.6 Albumin 4.2 Urine Color YELLOW Urine Appearance CLEAR Urine pH 6.0 Ur Specific [place] 1.015 Urine Protein NEG Urine Glucose (UA) >=1000 H Urine Ketones >=80 Urine Blood TRACE Urine Nitrite NEG Ur Leukocyte Esterase NEG Urine RBC 0-2 Urine WBC 0-2 Ur Squamous Epith Cells TRACE Urine Bacteria NONE Coronavirus (PCR) Influenza Type A (PCR) Influenza Type B (PCR) RSV RNA Qual (PCR) 06/01/21 06/01/21 06/02/21 22:26 22:31 00:29 MCV MCH MCHC RDW Plt Count MPV Immature Gran % (Auto) Neut % (Auto) Lymph % (Auto) Page % (Auto) Eos % (Auto) Baso % (Auto) Lymph # (Auto) Page # (Auto) Eos # (Auto) Baso # (Auto) Abs Immat Gran (auto) Absolute Neuts (auto) Absolute Nucleated RBC Nucleated RBC % (auto) Hold Purple Top Anion Gap Estim Creat Clear Calc Estimated GFR POC Glucose 405 H* Random Glucose Lactic Acid 1.2 Calcium Total Bilirubin AST ALT Alkaline Phosphatase Total Protein Albumin Urine Color Urine Appearance Urine pH Ur Specific [place] Urine Protein Urine Glucose (UA) Urine Ketones Urine Blood Urine Nitrite Ur Leukocyte Esterase Urine RBC Urine WBC Ur Squamous Epith Cells Urine Bacteria Coronavirus (PCR) NEGATIVE Influenza Type A (PCR) NEGATIVE Influenza Type B (PCR) NEGATIVE RSV RNA Qual (PCR) NEGATIVE Imaging Radiologist's Impressions: Impressions Abdomen/Pelvis CT 06/01/21 19:33 IMPRESSION: Mild chronic appearing changes as described. No acute process seen when compared to the 11/29/2018 examination.. Chest X-Ray 06/01/21 22:02 IMPRESSION: Although hypoexpanded, there is new focal opacity in the left upper lobe. In the acute setting, infectious etiology would be suspected. Clinical correlation and follow-up imaging after treatment would be helpful to ensure its resolution. Assessment and Plan (1) Sepsis: Status: Acute (2) Pneumonia: Status: Acute (3) Acute hyperglycemia: Status: Acute 75-year-old female, hypothyroidism who presents to the hospital with confusion found to have pneumonia # sepsis - afebrile, has leukocytosis - sources most likely pneumonia - will treat with IV antibiotic - normal lactic acid - follow cultures # community-acquired pneumonia - as evidence on chest x-ray - has dyspnea, cough with no sputum production - will start on ceftriaxone azithromycin - will obtain Legionella and strep antigen - COVID-19 neck - monitor respiratory status - follow culture # acute hyperglycemia - secondary to diabetes - treated with low-dose sliding scale insulin as well as 5 units of insulin lispro - will hold oral antihyperglycemics - diabetic diet - monitor glucose q.i.d. a.c. # hypertension - low - hold antihypertensive - IV fluid # hypothyroidism - continue levothyroxine DVT prophylaxis: lovenox Quality Stroke Does the patient have a stroke diagnosis?: No VTE Prior VTE?: No VTE Risk Level:: Medical - moderate - high VTE Device Contraindication: Treatment Not Indicated VTE Drug Contraindication: N/A - Med Ordered
[2021-06-02] MEDS: Lactated Ringers 1,000 ML 999 ML IV (06:10)
[2021-06-02] MEDS: Lactated Ringers 1,000 ML 80 ML IVCONT (06:29)
[2021-06-02 07:03] LABS: Glucose, Whole Blood 271 mg/dL (60-115)
--- NOTE | 2021-06-02 07:31 | PC.NURSE ---
report given to imc rn
[2021-06-02 08:14] LABS: Glucose, Whole Blood 288 mg/dL (60-115)
[2021-06-02] MEDS: Pravastatin Sodium 40 MG TABLET PO (09:09)
[2021-06-02] MEDS: 0.9 % Sodium Chloride Flush 3 ML SYRINGE IVFLUSH ×2 (09:10→16:50)
[2021-06-02] MEDS: Omeprazole 20 MG CAPSULE.DR PO (09:10)
[2021-06-02] MEDS: Levothyroxine Sodium 100 MCG TABLET PO (09:10)
[2021-06-02 11:02] LABS: Glucose, Whole Blood 273 mg/dL (60-115)
--- NOTE | 2021-06-02 11:14 | MHC.CM.PN ---
met with pt who had n o services prior to admissin dc plan home no alyx pt has his car in parking lot..hcp completed and placed on chart
--- NOTE | 2021-06-02 11:58 | MHC.CM.PN ---
spoke with pts daughter who explins that pt lives with her she is requesting help at home she is waiting for a caLL BACK FROM, [place] a referral made to [facility] will need f2f
[2021-06-02 16:29] LABS: Glucose, Whole Blood 205 mg/dL (60-115)
[2021-06-02] MEDS: buPROPion HCL 75 MG TABLET PO (16:50)
[2021-06-02] MEDS: Triamcinolone Acet 0.1 % Cream 15 GM TUBE 1 APPL TOPICAL (16:50)
[2021-06-02 21:15] LABS: Glucose, Whole Blood 253 mg/dL (60-115)
[2021-06-02] MEDS: cefTRIAXone sodium 1 GM in 0.9 % Sodium Chloride 50 ML IV (21:29)
[2021-06-02] MEDS: Azithromycin 500 MG TABLET PO (21:29)
[2021-06-03] MEDS: Enoxaparin Sodium 40 MG/0.4 ML SYRINGE SUBCUT (00:13)
[2021-06-03] MEDS: 0.9 % Sodium Chloride Flush 3 ML SYRINGE IVFLUSH ×4 (00:13→21:33)
[2021-06-03 04:00] VITALS: BP 137/62; PULSE 72; RESP 20; TEMP 37; O2SAT 96
[2021-06-03] MEDS: Levothyroxine Sodium 100 MCG TABLET PO (05:55)
[2021-06-03 06:24] LABS: MANUAL DIFF FLAG NO
[2021-06-03 06:32] LABS: Basophils Absolute Auto 0.1 X10*3/uL (0.0-0.2); Basophils Percent Auto 0.5 % (0-2); Eosinophils Absolute Auto 0.3 X10*3/uL (0.0-0.4); Eosinophils Percent Auto 2.9 % (0-4); Hematocrit 35.8 % (37-47); Hemoglobin 11.6 g/dl (12.0-16.0); Imm Gran Abs Auto 0.05 X10*3/uL (0.00-0.03); Imm Gran Pct Auto 0.4 % (0.0-0.4); Lymphocytes Absolute Auto 2.3 X10*3/uL (1.2-4.9); Lymphocytes Percent Auto 20.1 % (20-40); Mean Corpuscular HGB Conc 32.4 g/dl (31.0-35.0); Mean Corpuscular Hemoglobin 30.4 pg (27.0-33.0); Mean Corpuscular Volume 93.7 fL (80-98); Monocytes Absolute Auto 0.8 X10*3/uL (0.1-1.2); Monocytes Percent Auto 7.3 % (2-11); Neutrophils Absolute Auto 7.8 X10*3/uL (2.0-8.3); Neutrophils Percent Auto 68.8 % (45-73); Platelet Count 209 X10*3/uL (160-400); Red Blood Count 3.82 X10*6/uL (4.20-5.50); Red Cell Distribution Width 12.3 % (11.0-16.0); White Blood Count 11.3 X10*3/uL (4.8-10.8)
[2021-06-03 07:09] LABS: Glucose, Whole Blood 217 mg/dL (60-115)
[2021-06-03 07:26] VITALS: BP 132/64; PULSE 69; RESP 20; TEMP 36.1; O2SAT 96
[2021-06-03 07:29] LABS: Anion Gap 12 (12-20); Blood Urea Nitrogen 14 mg/dL (9-16); Calcium 8.6 mg/dL (8.4-10.2); Carbon Dioxide 26 mmol/L (22-29); Chloride 102 mmol/L (96-108); Creatinine Clr Calc Pharmacy 71.5; Estimated Glomerular Filt Rate > 60; Glucose Random 240 mg/dL (60-115); Potassium 3.7 mmol/L (3.3-5.1); Sodium 136 mmol/L (135-145)
[2021-06-03] MEDS: buPROPion HCL 75 MG TABLET PO ×2 (08:17→16:42)
[2021-06-03] MEDS: Pravastatin Sodium 40 MG TABLET PO (08:17)
[2021-06-03] MEDS: Insulin Lispro 100 UNIT/ML 3 ML VIAL SUBCUT ×4 (08:17→21:33)
[2021-06-03] MEDS: Omeprazole 20 MG CAPSULE.DR PO (08:17)
[2021-06-03] MEDS: Triamcinolone Acet 0.1 % Cream 15 GM TUBE 1 APPL TOPICAL (08:18)
[2021-06-03] MEDS: Insulin Glargine,Hum.rec.anlog 100 UNIT/ML 10 ML VIAL 6 UNIT SUBCUT (09:28)
[2021-06-03 11:10] LABS: Glucose, Whole Blood 339 mg/dL (60-115)
[2021-06-03 11:12] VITALS: BP 132/64; PULSE 69; O2SAT 96
[2021-06-03 11:24] VITALS: BP 134/65; PULSE 73; RESP 20; TEMP 36.5; O2SAT 96
--- NOTE | 2021-06-03 13:15 | MHC.CM.PN ---
Female 75 DX Sepsis CAP Lives with her daughter. DP home with a new referral to [facility]. Family will provide transportation. Family is working with [facility], to obtain services. CM will follow.
[2021-06-03 15:11] VITALS: BP 122/56; PULSE 75; RESP 18; TEMP 36.8; O2SAT 98
[2021-06-03 15:49] LABS: Glucose, Whole Blood 265 mg/dL (60-115)
--- NOTE | 2021-06-03 16:24 | HO.PM.IMPN ---
Subjective Subjective Date of Service: 06/03/21 Interval History: Constitutional : Alert, oriented, not in distress Neck : Normal inspection, Supple Cardiovascular : RRR, S1 S2, no lower extremity edema Respiratory : Decrease bilateral air entry, basal crackles, wheezes or rhonchi Gastrointestinal: soft, lax, Normal bowel sounds, Non tender Skin : Warm/Dry, No rash Neurological : Alert & oriented x3, No focal deficit Physical Exam Vital Signs: Vital Signs: Last Vital Signs Temp 98.2 F 06/03/21 15:11 Pulse 75 06/03/21 15:11 Resp 18 06/03/21 15:11 BP 122/56 L 06/03/21 15:11 Pulse Ox 98 06/03/21 15:11 Body Mass Index 37.8 Objective Data Current Medications Generic Name Dose Route Start Last Admin Trade Name Freq PRN Reason Stop Dose Admin Acetaminophen 650 mg 06/02/21 00:36 Acetaminophen 325 Mg Tablet PO Q6H PRN Pain, Mild (Pain Scale 1-3) Azithromycin 500 mg 06/02/21 22:00 06/02/21 21:29 Azithromycin 500 Mg Tablet PO 500 mg Q24H [facility] Administration Bupropion HCl 75 mg 06/02/21 18:00 06/03/21 08:17 Bupropion Hcl 75 Mg Tablet PO 75 mg BID@0900,1800 [facility] Administration Docusate Sodium 100 mg 06/02/21 00:36 Docusate Sodium 100 Mg Capsule PO DAILY PRN Constipation Enoxaparin Sodium 40 mg 06/02/21 01:00 06/03/21 00:13 Enoxaparin Sodium 40 Mg/0.4 Ml Syringe SUBCUT 40 mg Q24H [facility] Administration Ceftriaxone Sodium 1 gm/ 50 mls @ 100 mls/hr 06/02/21 22:00 06/02/21 23:02 Sodium Chloride IV Infused Q24H [facility] Infusion Insulin Glargine 6 unit 06/03/21 09:00 06/03/21 09:28 Insulin Glargine,Hum.Rec.Anlog 100 Unit/Ml 10 Ml Vial SUBCUT 6 unit DAILY [facility] Administration Insulin Human Lispro 0 unit 06/02/21 00:45 06/03/21 11:27 Insulin Lispro 100 Unit/Ml 3 Ml Vial SUBCUT 8 unit QIDACHS [facility] Administration Protocol Levothyroxine Sodium 100 mcg 06/02/21 06:00 06/03/21 05:55 Levothyroxine Sodium 100 Mcg Tablet PO 100 mcg DAILY@0600 [facility] Administration Mirtazapine 7.5 mg 06/02/21 00:45 06/02/21 21:28 Mirtazapine 7.5 Mg Tablet PO 7.5 mg BEDTIME [facility] Administration Omeprazole 20 mg 06/02/21 09:00 06/03/21 08:17 Omeprazole 20 Mg Capsule. PO 20 mg DAILY [facility] Administration Ondansetron HCl 4 mg 06/02/21 00:36 Ondansetron Hcl 4 Mg/2 Ml Vial IVPUSH Q8H PRN Nausea and Vomiting Pravastatin Sodium 40 mg 06/02/21 09:00 06/03/21 08:17 Pravastatin Sodium 40 Mg Tablet PO 40 mg DAILY [facility] Administration Sodium Chloride 3 ml 06/02/21 08:00 06/03/21 15:24 0.9 % Sodium Chloride Flush 3 Ml Syringe IVFLUSH 3 ml QSHIFT [facility] Administration Triamcinolone Acetonide 1 appl 06/02/21 09:00 06/03/21 08:18 Triamcinolone Acet 0.1 % Cream 15 Gm Tube TOPICAL 1 appl DAILY [facility] Administration Protocol Labs CBC & Chem 7: 06/03/21 04:18 06/03/21 04:18 Labs: Laboratory Results - last 24 hr 06/02/21 06/02/21 06/03/21 16:24 21:05 04:18 MCV 93.7 MCH 30.4 MCHC 32.4 RDW 12.3 Plt Count 209 MPV 11.0 Immature Gran % (Auto) 0.4 Neut % (Auto) 68.8 Lymph % (Auto) 20.1 [place] % (Auto) 7.3 Eos % (Auto) 2.9 Baso % (Auto) 0.5 Lymph # (Auto) 2.3 [place] # (Auto) 0.8 Eos # (Auto) 0.3 Baso # (Auto) 0.1 Abs Immat Gran (auto) 0.05 H Absolute Neuts (auto) 7.8 Absolute Nucleated RBC 0.000 Nucleated RBC % (auto) 0.0 Anion Gap Estim Creat Clear Calc Estimated GFR POC Glucose 205 H 253 H Random Glucose Calcium 06/03/21 06/03/21 06/03/21 04:18 07:03 11:02 MCV MCH MCHC RDW Plt Count MPV Immature Gran % (Auto) Neut % (Auto) Lymph % (Auto) [place] % (Auto) Eos % (Auto) Baso % (Auto) Lymph # (Auto) [place] # (Auto) Eos # (Auto) Baso # (Auto) Abs Immat Gran (auto) Absolute Neuts (auto) Absolute Nucleated RBC Nucleated RBC % (auto) Anion Gap 12 Estim Creat Clear Calc 71.5 Estimated GFR > 60 POC Glucose 217 H 339 H Random Glucose 240 H D Calcium 8.6 D 06/03/21 15:45 MCV MCH MCHC RDW Plt Count MPV Immature Gran % (Auto) Neut % (Auto) Lymph % (Auto) [place] % (Auto) Eos % (Auto) Baso % (Auto) Lymph # (Auto) [place] # (Auto) Eos # (Auto) Baso # (Auto) Abs Immat Gran (auto) Absolute Neuts (auto) Absolute Nucleated RBC Nucleated RBC % (auto) Anion Gap Estim Creat Clear Calc Estimated GFR POC Glucose 265 H Random Glucose Calcium Microbiology Microbiology Results: Microbiology 06/01/21 22:38 Blood Culture - Preliminary Blood - Venous No growth after 24 hours. 06/01/21 22:26 Blood Culture - Preliminary Blood - Venous No growth after 24 hours. Assessment and Plan (1) Sepsis: Status: Acute (2) Pneumonia: Status: Acute (3) Acute hyperglycemia: Status: Acute (4) Acute metabolic encephalopathy: Status: Acute Assessment and Plan: 75-year-old female, hypothyroidism who presents to the hospital with confusion found to have pneumonia # sepsis # community-acquired pneumonia as evidence on chest x-ray has dyspnea, cough with no sputum production Continue ceftriaxone azithromycin Pending Legionella and strep antigen COVID-19 negative monitor respiratory status follow culture # a hyperglycemia seconda to diabetes treated with low-dose sliding scale insulin as well as 5 units of insulin lispro Start Lantus will hold oral antihyperglycemics diabetic diet monitor glucose q.i.d. a.c. # confusion Secondary to infection Improving Recurrent reorientation # hypertension low hold antihypertensive Discontinue IVF # hypothyroidism continue levothyroxine DVT prophylaxis lovenox Quality Stroke Does the patient have a stroke diagnosis?: No VTE Prior VTE?: No VTE Risk Level:: Medical - moderate - high VTE Device Contraindication: Treatment Not Indicated VTE Drug Contraindication: N/A - Med Ordered
[2021-06-03 19:00] VITALS: BP 164/72; PULSE 81; RESP 18; TEMP 37; O2SAT 97
[2021-06-03 20:26] LABS: Glucose, Whole Blood 278 mg/dL (60-115)
[2021-06-03] MEDS: Acetaminophen 325 MG TABLET 650 MG PO (21:32)
[2021-06-03] MEDS: Azithromycin 500 MG TABLET PO (21:32)
[2021-06-03] MEDS: Mirtazapine 7.5 MG TABLET PO (21:32)
[2021-06-03] MEDS: cefTRIAXone sodium 1 GM in 0.9 % Sodium Chloride 50 ML IV (21:32)
[2021-06-04] VITALS: BP 140/68; PULSE 74; RESP 18; TEMP 37.1; O2SAT 95
[2021-06-04] MEDS: Enoxaparin Sodium 40 MG/0.4 ML SYRINGE SUBCUT (00:06)
[2021-06-04 02:56] VITALS: BP 157/74; PULSE 74; RESP 15; TEMP 36.6; O2SAT 95
[2021-06-04] MEDS: Levothyroxine Sodium 100 MCG TABLET PO (05:40)
[2021-06-04 06:40] LABS: Hematocrit 38.7 % (37-47); Hemoglobin 12.7 g/dl (12.0-16.0); Mean Corpuscular HGB Conc 32.8 g/dl (31.0-35.0); Mean Corpuscular Hemoglobin 30.1 pg (27.0-33.0); Mean Corpuscular Volume 91.7 fL (80-98); Mean Platelet Volume 10.7 fL (9.4-12.3); Platelet Count 263 X10*3/uL (160-400); Red Blood Count 4.22 X10*6/uL (4.20-5.50); White Blood Count 7.9 X10*3/uL (4.8-10.8)
[2021-06-04 07:03] LABS: Glucose, Whole Blood 279 mg/dL (60-115)
[2021-06-04 07:16] LABS: Anion Gap 12 (12-20); Blood Urea Nitrogen 12 mg/dL (9-16); Carbon Dioxide 28 mmol/L (22-29); Chloride 101 mmol/L (96-108); Creatinine Clr Calc Pharmacy 74.4; Estimated Glomerular Filt Rate > 60; Glucose Random 278 mg/dL (60-115); Potassium 3.8 mmol/L (3.3-5.1); Sodium 137 mmol/L (135-145)
[2021-06-04 07:25] VITALS: BP 108/53; PULSE 66; RESP 16; TEMP 36.8; O2SAT 95
[2021-06-04] MEDS: Insulin Glargine,Hum.rec.anlog 100 UNIT/ML 10 ML VIAL 10 UNIT SUBCUT (09:37)
[2021-06-04] MEDS: Pravastatin Sodium 40 MG TABLET PO (09:37)
[2021-06-04] MEDS: Omeprazole 20 MG CAPSULE.DR PO (09:37)
[2021-06-04] MEDS: buPROPion HCL 75 MG TABLET PO (09:37)
[2021-06-04] MEDS: 0.9 % Sodium Chloride Flush 3 ML SYRINGE IVFLUSH (09:38)
[2021-06-04] MEDS: Acetaminophen 325 MG TABLET 650 MG PO (09:38)
[2021-06-04] MEDS: Insulin Lispro 100 UNIT/ML 3 ML VIAL SUBCUT ×2 (09:45→12:43)
[2021-06-04 10:57] LABS: Glucose, Whole Blood 341 mg/dL (60-115)
[2021-06-04 11:13] VITALS: BP 141/68; PULSE 68; RESP 18; TEMP 36.2; O2SAT 96
--- NOTE | 2021-06-04 11:28 | P.DS_ITS ---
DS: Providers Provider Date of Service: 06/04/21 Date of admission: 06/02/21 00:35 Primary care physician: Jai Bryant PA-C DS: Diagnosis Discharge Diagnosis (1) Sepsis: Status: Acute (2) Pneumonia: Status: Acute (3) Acute hyperglycemia: Status: Acute (4) Acute metabolic encephalopathy: Status: Acute DS: Medications Discharge Medications Home Medications: Home Medications Medication Instructions Recorded Confirmed omeprazole 20 mg capsule,delayed 20 mg PO DAILY 08/25/20 06/02/21 release bupropion HCl 75 mg tablet 75 mg PO BID 06/02/21 06/02/21 ibuprofen 800 mg tablet 800 mg PO NEEDED PRN 06/02/21 06/02/21 loratadine 10 mg tablet 1 tab PO DAILY 06/02/21 06/02/21 naproxen 500 mg tablet 500 mg PO NEEDED 06/02/21 06/02/21 Previous Rx's Medication Instructions Recorded triamcinolone acetonide 0.1 % 1 appl TOPICAL DAILY 30 Days #80 g 12/30/20 topical cream levothyroxine 100 mcg tablet 100 mcg PO DAILY 90 Days #90 tab 03/23/21 mirtazapine 7.5 mg tablet 7.5 mg PO BEDTIME 30 Days #30 tab 04/01/21 amlodipine 2.5 mg tablet 2.5 mg PO DAILY 90 Days #90 tab 05/21/21 dulaglutide 0.75 mg/0.5 mL 0.75 mg SUBCUT QWEEK 28 Days #2 ml 05/21/21 subcutaneous pen injector (Trulicity) metformin 500 mg tablet 1,000 mg PO BID 30 Days #120 tab 05/21/21 pravastatin 40 mg tablet 40 mg PO DAILY #90 tab 05/21/21 azithromycin 500 mg tablet 500 mg PO Q24H 4 Days #4 tab 06/04/21 cefuroxime axetil 500 mg tablet 500 mg PO Q12H #8 tab 06/04/21 DS: Summary Hospital Course Hospital Course: Admission note 75-year-old Kiswahili-speaking female with past medical history of diabetes, hyperlipidemia, hypothyroidism, HTN, who presents to the hospital with her daughter for confusion.? History is obtained mostly with the help of her daughter at bedside but according to her daughter who lives with the patient, patient was confused for the past 2 days, complaining of dizziness, weakness, low appetite.? Patient's daughter also complained that she has been having shortness of breath, coughing with minimal sputum production.? Patient complains of chills.? No nausea no vomiting, no abdominal pain diarrhea constipation, no urinary symptoms and no lower extremity edema.? No numbness tingling or specific weakness in any of her extremities. She is not vaccinated for COVID, no recent sick contact and no recent travel. On arrival to the ED patient has a temp of 101.9?, heart rate of 105, respiratory rate of 16, blood pressure 128/73, satting 96% on room air. Labs are significant for WBC count of 16.1, sodium of 134, potassium 4.3, BUN of 12, creatinine of 1.15 0.8, glucose of 405, UA negative, COVID, influenza negative, Chest x-ray showed new focal opacity in the left upper lobe Abdominal pelvic CT shows mild chronic appearing changes with no acute process Past medical history as below and confirmed with patient and her daughter Hospital course The patient was admitted to the hospital for evaluation of confusion. Studies in the emergency were consistent with sepsis secondary to pneumonia as shown on x-ray. The patient was admitted and treated with IV antibiotics of azithromycin and ceftriaxone with good response over the course of hospital stay as she was able to ambulate freely on the room air with no reported dyspnea or shortness of breath. Her confusion completely resolved and she improved back to her baseline mental status. blood cultures remain negative. Plan to discharge her back home as Physical therapy clears her to go back home with no services to finish antibiotic course of azithromycin and Ceftin for 4 more days. Time Spent with Patient Time attestation: Total time spent providing and/or coordinating discharge services: Discharge coordination time: Greater than 30 minutes Quality: Stroke Does the patient have a stroke diagnosis?: No Physical Exam Vital Signs: Vital Signs: Last Vital Signs Temp 97.2 F 06/04/21 11:13 Pulse 68 06/04/21 11:13 Resp 18 06/04/21 11:13 BP 141/68 H 06/04/21 11:13 Pulse Ox 96 06/04/21 11:13 Body Mass Index 37.8 Const: Other: Constitutional : Alert, oriented, not in distress Neck : Normal inspection, Supple Cardiovascular : RRR, S1 S2, no lower extremity edema Respiratory : Good bilateral air entry, no crackles, wheezes or rhonchi Gastrointestinal: soft, lax, Normal bowel sounds, Non tender Skin : Warm/Dry, No rash Neurological : Alert & oriented x3, left sided weakness DS: Data Data Completed and Pending Labs on day of discharge: Laboratory Results - last 24 hr 06/03/21 06/03/21 06/04/21 15:45 20:22 05:39 WBC 7.9 RBC 4.22 Hgb 12.7 Hct 38.7 MCV 91.7 MCH 30.1 MCHC 32.8 RDW 12.0 Plt Count 263 D MPV 10.7 Absolute Nucleated RBC 0.000 Nucleated RBC % (auto) 0.0 Sodium Potassium Chloride Carbon Dioxide Anion Gap BUN Creatinine Estim Creat Clear Calc Estimated GFR POC Glucose 265 H 278 H Random Glucose Calcium 06/04/21 06/04/21 06/04/21 05:39 06:54 10:45 WBC RBC Hgb Hct MCV MCH MCHC RDW Plt Count MPV Absolute Nucleated RBC Nucleated RBC % (auto) Sodium 137 Potassium 3.8 Chloride 101 Carbon Dioxide 28 Anion Gap 12 BUN 12 Creatinine 0.75 Estim Creat Clear Calc 74.4 Estimated GFR > 60 POC Glucose 279 H 341 H Random Glucose 278 H Calcium 9.0 Preliminary micro results at discharge 06/01/21 22:38 Blood Culture - Preliminary Blood - Venous No growth after 48 hours. 06/01/21 22:26 Blood Culture - Preliminary Blood - Venous No growth after 48 hours. Discharge Plan Discharge Patient Disposition: Home, Self-Care Discharge Diagnosis: Sepsis Pneumonia Referrals: Jai Bryant PA-C [Primary Care Provider] - 1 Week Discharge Medications: New azithromycin 500 mg Tablet 500 mg PO Q24H 4 Days Qty: 4 RF: 0 cefuroxime axetil 500 mg tablet 500 mg PO Q12H Qty: 8 RF: 0 Continued levothyroxine 100 mcg tablet 100 mcg PO DAILY 90 Days Qty: 90 RF: 3 mirtazapine 7.5 mg tablet 7.5 mg PO BEDTIME 30 Days Qty: 30 RF: 3 ibuprofen 800 mg tablet 800 mg PO NEEDED PRN (Reason: pain) RF: 0 naproxen 500 mg tablet 500 mg PO NEEDED RF: 0 bupropion HCl 75 mg tablet 75 mg PO BID RF: 0 loratadine 10 mg tablet 1 tab PO DAILY RF: 0 omeprazole 20 mg capsule,delayed release(DR/EC) 20 mg PO DAILY RF: 0 metformin 500 mg tablet 1,000 mg PO BID 30 Days Qty: 120 RF: 1 Trulicity 0.75 mg/0.5 mL pen injector 0.75 mg subcut QWEEK 28 Days Qty: 2 RF: 3 amlodipine 2.5 mg tablet 2.5 mg PO DAILY 90 Days Qty: 90 RF: 1 pravastatin 40 mg tablet 40 mg PO DAILY Qty: 90 RF: 1 triamcinolone acetonide 0.1 % cream 1 appl topical DAILY 30 Days Qty: 80 RF: 0 Discharge Orders: Discharge Order (Routine); Ordered 06/04/21 Ordered By: Nida Harvey Diet: advance to usual diet Activity on Discharge: As tolerated Stand Alone Forms: Patient Portal Discharge page Care Plan Goals: Read below Health Concerns: Read below Plan of Treatment: You were admitted to the hospital for altered mentation and difficulty breathing . Found to have pneumonia treated with IV antibiotics with good response. Your blood cultures remain negative and your mentation improved back to baseline. Assessment: Continue azithromycin and Ceftin as prescribed
--- NOTE | 2021-06-04 11:32 | MHC.CM.PN ---
Female 75 DX CAP Sepsis is discharged today to home. No homecare services ordered, or needed. Patient lives with her dtr. Family providing transportation. [facility] to resume services.
[2021-06-04] MEDS: Triamcinolone Acet 0.1 % Cream 15 GM TUBE 1 APPL TOPICAL (12:47)
[2021-06-05 21:31] LABS: Strep Pneumo Ag urine Not Detected (Not Detected)
[2021-06-09 04:02] LABS: Legionella Ag Urine Not Detected (Not Detected)
== END 2021-06-04 15:30 | disposition home or self-care (01) | DRG 871 ==
LOC: HO.ED 23:16 → HO.EDOVER 06-02 01:23 → HO.IMC 06-02 07:24
PROVIDERS: Internal Medicine; Admitting Provider Internal Medicine; Emergency Provider Emergency Medicine; PCP Physician Assistant; Visit Provider Student in an Organized Health Care Education/Training Program
DX: A41.9 Sepsis, unspecified organism (principal); J18.9 Pneumonia, unspecified organism; G93.41 Metabolic encephalopathy; I69.954 Hemiplegia and hemiparesis following unspecified cerebrovascular disease affecting left non-dominant side; I10 Essential (primary) hypertension; E11.65 Type 2 diabetes mellitus with hyperglycemia; E03.9 Hypothyroidism, unspecified; Z20.822 Contact with and (suspected) exposure to COVID-19; Z79.1 Long term (current) use of non-steroidal anti-inflammatories (NSAID); Z79.84 Long term (current) use of oral hypoglycemic drugs; Z79.890 Hormone replacement therapy; Z79.899 Other long term (current) drug therapy
CPT/HCPCS: 0241U; 36415; 71045; 74176; 80048; 80053; 81001; 82947; 83605; 85025; 85027; 87040; 87449; 87899; 97162; 99285; J0456; J0696; J1650

== ENCOUNTER 2021-07-02 19:28 | Emergency (ER) | payer MEDICARE, MEDICAID, SELFPAY ==
--- NOTE | ~2021-07-02 | XR_ITS ---
EXAMINATION: XR LUMBAR SPINE XR HIP, LEFT CLINICAL INFORMATION: Fall. Pain. COMPARISON: Most recent CT abdomen/pelvis dated 06/01/2021. TECHNIQUE: AP, lateral, and coned-down views of the lumbar spine. AP view of the pelvis as well as AP and frog-leg lateral views of the left hip. FINDINGS: LUMBAR SPINE: Normal vertebral body alignment. The lumbar lordosis is maintained. No acute fracture or subluxation. No loss of vertebral body height. Mild multilevel loss of intervertebral disc. There are tiny endplate osteophytes. Multilevel bilateral facet arthropathy. No lytic or blastic osseous lesion. Right upper quadrant surgical clips. 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 LEFT HIP: No acute fracture or dislocation. Mild right and left hip joint space narrowing with small marginal osteophytes. No osseous erosion. No abnormal soft tissue calcification. XR/XR lumbar spine 2-3V IMPRESSION: Lumbar spine: No acute osseous abnormality. Mild multilevel degenerative disc disease and bilateral facet arthropathy. Left hip: Mild bilateral hip osteoarthritis.
--- NOTE | ~2021-07-02 | XR_ITS ---
EXAMINATION: XR LUMBAR SPINE XR HIP, LEFT CLINICAL INFORMATION: Fall. Pain. COMPARISON: Most recent CT abdomen/pelvis dated 06/01/2021. TECHNIQUE: AP, lateral, and coned-down views of the lumbar spine. AP view of the pelvis as well as AP and frog-leg lateral views of the left hip. FINDINGS: LUMBAR SPINE: Normal vertebral body alignment. The lumbar lordosis is maintained. No acute fracture or subluxation. No loss of vertebral body height. Mild multilevel loss of intervertebral disc. There are tiny endplate osteophytes. Multilevel bilateral facet arthropathy. No lytic or blastic osseous lesion. Right upper quadrant surgical clips. 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 LEFT HIP: No acute fracture or dislocation. Mild right and left hip joint space narrowing with small marginal osteophytes. No osseous erosion. No abnormal soft tissue calcification. XR/XR hip LT w PEL1V IMPRESSION: Lumbar spine: No acute osseous abnormality. Mild multilevel degenerative disc disease and bilateral facet arthropathy. Left hip: Mild bilateral hip osteoarthritis.
[2021-07-02 19:29] VITALS: BP 193/88; PULSE 86; RESP 16; TEMP 36.7; O2SAT 98; BMI 40.4
[2021-07-02 19:56] VITALS: BP 159/74; PULSE 82; RESP 18; O2SAT 97
--- NOTE | 2021-07-02 20:00 | PC.NURSE ---
left hip pain from fall 1.5 weeks ago. Pt is unable to bear weight and is full assist to transfer from to stretcher. no walker use at home d/t chronic left arm pain and weakness. pt denies stroke hx. palpable pedal pulses. no shortening/external rotation of LLE. daughter at bedside.
--- NOTE | 2021-07-02 20:49 | PC.NURSE ---
This RN to bedside. Pt tearful, daughter at bedside. Pt Tongan speaking only, daughter interprets for pt and reports that pt is aaox4. Daughter informs this RN that pt is reporting L hip pain and is tearful as she wants to go home as she does not like being in the hospital and does not want to stay overnight. This RN informs pt that no decisions have been made regarding pt's dispo at this time, and that a provider will need to assess pt before dispo can be made. Pt expresses understanding. Stretcher in low locked position, rails raised, call house within reach.
--- NOTE | 2021-07-02 21:21 | ED_ITS ---
HPI - Fall General Chief Complaint: Fall Stated Complaint: fall Time Seen by Provider: 07/02/21 21:05 Source: patient Mode of arrival: wheelchair Limitations: no limitations History of Present Illness HPI Narrative: Patient comes emergency room complaining of pain in her left hip and lower back. Patient states that approximately 1 week ago, patient fell in her bathtub. Patient has been able to walk but has been doing so with pain. Patient complaining of worsening right hip pain. Patient states that she has been taking Aleve for pain and does help. Patient has chronic issues with her left leg, states she lost her footing and slipped in the bathtub. Patient did not hit her head, did not lose consciousness. Also complaining of constipation for 5 days Related Data Home Medications Medication Instructions Recorded Confirmed omeprazole 20 mg capsule,delayed 20 mg PO DAILY 08/25/20 06/02/21 release bupropion HCl 75 mg tablet 75 mg PO BID 06/02/21 06/02/21 ibuprofen 800 mg tablet 800 mg PO NEEDED PRN 06/02/21 06/02/21 loratadine 10 mg tablet 1 tab PO DAILY 06/02/21 06/02/21 naproxen 500 mg tablet 500 mg PO NEEDED 06/02/21 06/02/21 Previous Rx's Medication Instructions Recorded triamcinolone acetonide 0.1 % 1 appl TOPICAL DAILY 30 Days #80 g 12/30/20 topical cream levothyroxine 100 mcg tablet 100 mcg PO DAILY 90 Days #90 tab 03/23/21 amlodipine 2.5 mg tablet 2.5 mg PO DAILY 90 Days #90 tab 05/21/21 dulaglutide 0.75 mg/0.5 mL 0.75 mg SUBCUT QWEEK 28 Days #2 ml 05/21/21 subcutaneous pen injector (Trulicity) pravastatin 40 mg tablet 40 mg PO DAILY #90 tab 05/21/21 azithromycin 500 mg tablet 500 mg PO Q24H 4 Days #4 tab 06/04/21 cefuroxime axetil 500 mg tablet 500 mg PO Q12H #8 tab 06/04/21 metformin 500 mg tablet 1,000 mg PO BID 30 Days #120 tab 06/15/21 mirtazapine 7.5 mg tablet 7.5 mg PO BEDTIME #90 tab 06/27/21 polyethylene glycol 3350 17 17 g PO BID #119 g 07/02/21 gram/dose oral powder (Miralax) tramadol 50 mg tablet 50 mg PO DAILY #6 tab 07/02/21 Allergies Allergy/AdvReac Type Severity Reaction Status Date / Time atorvastatin Allergy Unknown rash Verified 05/21/21 14:59 simvastatin Allergy Unknown rash Verified 05/21/21 14:59 Review of Systems Review of Systems: Constitutional : No Weight loss, No Fever, No Chills, No Night Sweats, No Fatigue, No Malaise ENT/Mouth : No Hearing loss, No Ear Pain, No Nasal Congestion, No Sinus Pain, No Hoarseness, No sore throat, No Rhinorrhea, No Swallowing Difficulty Eyes: No Eye Pain, No Swelling, No Redness, No Foreign Body, No Discharge, No Vision Changes Cardiovascular : No Chest Pain, No SOB, No Dyspnea on Exertion, No Orthopnea, No Edema, No Palpitations Respiratory : No Cough, No Sputum, No Wheezing, No Smoke Exposure, No Dyspnea Gastrointestinal : No Nausea, No Vomiting, No Diarrhea, c/o Constipation, No abdominal Pain, No Hematochezia, No Melena Genitourinary : no irregular bleeding, No Dysuria, No Urinary Frequency, No Hematuria, No Urinary Incontinence, No Urgency, No Flank Pain, No Urinary Flow Changes, No Hesitancy Musculoskeletal : Complaining of left hip pain and left lower back pain Skin : No Skin Lesions, No rash Neuro : No Weakness, No Numbness, No Paresthesias, No Loss of Consciousness, No Dizziness, No Headache Psych : No Anxiety/Panic, No Depression, No SI/HI/AH/VH, No Social Issues, Heme/Lymph: No Bruising, No Bleeding,No Lymphadenopathy Endocrine : No Polyuria, No Polydipsia, No Temperature Intolerance [facility] Past Medical History Medical History Diabetes High cholesterol HLD (hyperlipidemia) HTN (hypertension) Hypothyroidism Knee pain, right Lumbar disc disease with radiculopathy MDD (major depressive disorder) Right groin pain Surgical History Hx of section Hx of cholecystectomy Hx of eye surgery Family History Family History Father No problems noted. Mother Diabetes Hypertension Maternal Aunt Cancer Social History Social History Household Members: Children Housing: House Do you presently have visiting nurse or other home services: No Alcohol intake: never Patient Tobacco Use Status: Never used Tobacco e-Cigarette/Vaping Use: Never Used Second Hand Smoke Exposure: No Use of substances other than those prescribed or required for medical reasons: No Advance Directives: No Advance Directives Information Provided: Yes service: No Current occupational status: disabled Physical Exam Vital Signs: Vital Signs: Last Vital Signs Temp 98.1 F 07/02/21 19:29 Pulse 80 07/02/21 22:00 Resp 23 H 07/02/21 22:00 BP 180/84 H 07/02/21 22:00 Pulse Ox 97 07/02/21 22:00 Body Mass Index 40.4 Const: Other: Appearance: Alert. Oriented X3. No acute distress. Eyes: Pupils equal, round and reactive to light. ENT: Pharynx normal. Neck: Normal inspection. Neck supple. No lymph nodes noted. No crepitus CVS: Normal heart rate and rhythm. Pulses normal. Normal S1 and S2 Respiratory: No respiratory distress. Breath sounds normal. No Wheezing. No rales Abdomen: Soft and nontender. No rigidity. No distention. Back: Mild lumbar spine tenderness on palpation. Skin: Skin warm and dry. Normal skin color. Normal skin turgor. Extremities: No lower extremity edema. Difficulty walking especially moving her left leg at baseline, negative straight leg raise test bilaterally. Pain to palpation over the left side of the hip posteriorly Neuro: Oriented X 3. No motor deficit. No sensory deficit. Moving all extermities. No slurred speech. Course Course Course Narrative: I discussed the urine analysis and x-ray with the patient and her daughter, no acute findings. Patient's pain likely secondary to contusion Patient states that the 1 dose of tramadol significantly relieve her pain, requesting a prescription MDM - Fall Lab Data Labs: Lab Results 07/02/21 Range/Units 22:07 Urine Color YELLOW Urine Appearance CLEAR Urine pH 6.5 (5.0-8.0) Ur Specific Schlater <= 1.005 (1.005-1.025) Urine Protein NEG (NEG-TRACE) MG/DL Urine Glucose (UA) NEG (NEG) MG/DL Urine Ketones NEG (NEG) MG/DL Urine Blood NEG (NEG) Urine Nitrite NEG (NEG) Ur Leukocyte Esterase NEG (NEG) Imaging Data Lumbar and left hip x-ray: Radiologist's impression: LUMBAR SPINE: Normal vertebral body alignment. The lumbar lordosis is maintained. No acute fracture or subluxation. No loss of vertebral body height. Mild multilevel loss of intervertebral disc. There are tiny endplate osteophytes. Multilevel bilateral facet arthropathy. No lytic or blastic osseous lesion. Right upper quadrant surgical clips. 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 LEFT HIP: No acute fracture or dislocation. Mild right and left hip joint space narrowing with small marginal osteophytes. No osseous erosion. No abnormal soft tissue calcification.? XR/XR hip LT w PEL1V IMPRESSION: Lumbar spine: No acute osseous abnormality. Mild multilevel degenerative disc disease and bilateral facet arthropathy. ? Left hip: Mild bilateral hip osteoarthritis. Discharge Plan Discharge Clinical Impression: Contusion Qualifiers: Encounter type: initial encounter Contusion area: hip Constipation Qualifiers: Constipation type: unspecified constipation type Qualified Code(s): K59.00 - Constipation, unspecified Patient Disposition: Home, Self-Care Instructions: Constipation (ED), Hip Pain (ED) Additional Instructions: The tramadol may worsen constipation. Please avoid taking it on the as the pain is intense. Otherwise take ibuprofen or Tylenol. Please follow-up with your primary care physician tomorrow. If you have any worsening or new symptoms, please return to the emergency room or call 911 Prescriptions: New tramadol 50 mg tablet 50 mg PO DAILY Qty: 6 RF: 0 polyethylene glycol 3350 [Miralax] 17 gram/dose powder 17 g PO BID Qty: 119 RF: 0 No Action levothyroxine 100 mcg tablet 100 mcg PO DAILY 90 Days Qty: 90 RF: 3 metformin 500 mg tablet 1,000 mg PO BID 30 Days Qty: 120 RF: 1 mirtazapine 7.5 mg tablet 7.5 mg PO BEDTIME Qty: 90 RF: 1 ibuprofen 800 mg tablet 800 mg PO NEEDED PRN (Reason: pain) RF: 0 naproxen 500 mg tablet 500 mg PO NEEDED RF: 0 bupropion HCl 75 mg tablet 75 mg PO BID RF: 0 loratadine 10 mg tablet 1 tab PO DAILY RF: 0 azithromycin 500 mg Tablet 500 mg PO Q24H 4 Days Qty: 4 RF: 0 cefuroxime axetil 500 mg tablet 500 mg PO Q12H Qty: 8 RF: 0 omeprazole 20 mg capsule,delayed release(DR/EC) 20 mg PO DAILY RF: 0 Trulicity 0.75 mg/0.5 mL pen injector 0.75 mg subcut QWEEK 28 Days Qty: 2 RF: 3 amlodipine 2.5 mg tablet 2.5 mg PO DAILY 90 Days Qty: 90 RF: 1 pravastatin 40 mg tablet 40 mg PO DAILY Qty: 90 RF: 1 triamcinolone acetonide 0.1 % cream 1 appl topical DAILY 30 Days Qty: 80 RF: 0
[2021-07-02 21:31] VITALS: BP 171/96; PULSE 83; RESP 18; O2SAT 96
--- NOTE | 2021-07-02 21:31 | PC.NURSE ---
Pt returned from xray. This RN to medicate per MAR
[2021-07-02] MEDS: traMADoL HCL 50 MG TABLET PO (21:33)
[2021-07-02 22:00] VITALS: BP 180/84; PULSE 80; RESP 23; O2SAT 97
[2021-07-02 22:13] LABS: Glucose Urine UA NEG (NEG); Leukocyte Esterase Urine NEG (NEG); Nitrite Urine NEG (NEG); PH 6.5 (5.0-8.0); Specific Gravity - Urine <= 1.005 (1.005-1.025); Urine Blood NEG (NEG); Urine Ketones NEG (NEG); Urine Protein NEG (NEG-TRACE)
[2021-07-02 22:17] LABS: Appearance Urine CLEAR; Color Urine YELLOW
[2021-07-02 22:58] VITALS: BP 156/77; PULSE 74; RESP 16; O2SAT 97
== END 2021-07-02 23:18 | disposition home or self-care (01) ==
PROVIDERS: Emergency Provider Emergency Medicine; PCP Physician Assistant
DX: S70.02XA Contusion of left hip, initial encounter (principal); W18.2XXA Fall in (into) shower or empty bathtub, initial encounter; K59.00 Constipation, unspecified; E11.9 Type 2 diabetes mellitus without complications; E78.00 Pure hypercholesterolemia, unspecified; Y93.E1 Activity, personal bathing and showering; Y92.012 Bathroom of single-family (private) house as the place of occurrence of the external cause; Y99.9 Unspecified external cause status; Z79.899 Other long term (current) drug therapy; Z79.4 Long term (current) use of insulin
CPT/HCPCS: 72100; 73502; 81003; 99283; 99285

== ENCOUNTER 2021-08-07 12:56 | Outpatient (REF) | payer MEDICARE, MEDICAID, SELFPAY ==
[2021-08-07 13:29] LABS: Hematocrit 45.2 % (37-47); Hemoglobin 14.8 g/dl (12.0-16.0); Mean Corpuscular HGB Conc 32.7 g/dl (31.0-35.0); Mean Corpuscular Hemoglobin 30.1 pg (27.0-33.0); Mean Corpuscular Volume 91.9 fL (80-98); Mean Platelet Volume 9.8 fL (9.4-12.3); Platelet Count 295 X10*3/uL (160-400); Red Blood Count 4.92 X10*6/uL (4.20-5.50); Red Cell Distribution Width 12.3 % (11.0-16.0); White Blood Count 5.1 X10*3/uL (4.8-10.8)
[2021-08-07 13:49] LABS: Alanine Aminotransferase 35 U/L (0-31); Albumin Level 4.5 g/dL (3.5-5.0); Alkaline Phosphatase 78 U/L (39-117); Anion Gap 13 (12-20); Aspartate Amino Transferase 25 U/L (5-31); Bilirubin Total 0.6 mg/dL (0.0-1.0); Blood Urea Nitrogen 21 mg/dL (9-16); Calcium 9.6 mg/dL (8.4-10.2); Carbon Dioxide 28 mmol/L (22-29); Chloride 103 mmol/L (96-108); Cholesterol 182 mg/dL; Estimated Glomerular Filt Rate > 60; Glucose Fasting 129 mg/dL (60-99); HDL Cholesterol 48 mg/dL; LDL Cholesterol Calculated 103 mg/dl; Potassium 4.6 mmol/L (3.3-5.1); Sodium 139 mmol/L (135-145); Total Protein 8.2 g/dL (6.5-8.0); Triglycerides 157 mg/dL
[2021-08-07 14:10] LABS: TSH reflex Free T4 3.86 uIU/mL (0.32-4.0)
[2021-08-07 14:11] LABS: Free T4 (Free Thyroxine) 1.24 ng/dL (0.71-1.85); Thyroid Stimulating Hormone 3.91 uIU/mL (0.32-4.0)
== END 2021-08-07 12:57 | disposition home or self-care (01) ==
LOC: HO.LAB 12:56
PROVIDERS: Internal Medicine Endocrinology, Diabetes & Metabolism; Nurse Practitioner Family; PCP Physician Assistant; Visit Provider Physician Assistant
DX: I10 Essential (primary) hypertension (principal); E11.9 Type 2 diabetes mellitus without complications; E03.8 Other specified hypothyroidism; E06.3 Autoimmune thyroiditis
CPT/HCPCS: 36415; 80053; 80061; 84439; 84443; 85027

== ENCOUNTER 2021-08-11 13:00 | Outpatient (RCR) | payer MEDICARE, MEDICAID, SELFPAY ==
--- NOTE | 2021-08-03 15:10 | MHC.PT.EP ---
[facility] [place] [facility] [place] [facility] [place] Office [address] Leonid Browne [address] [phone] F: [phone] F: [phone] F: [phone] F: [phone] Physical Therapy Plan of Care Date of Evaluation: Date of Surgery: n/a Diagnosis: low back pain, L sided weakness Assessment: Patient is a 75 year old R handed female who presents with s/s consistent with low back pain and L sided weakness. She has no reported stroke but is being scheduled for an MRI due to presentation. She is very sedentary at this time and has had extensive history of falls. Patient past medical history includes Diabetes, High cholesterol, HLD (hyperlipidemia), HTN (hypertension), Hypothyroidism, Knee pain, right, Lumbar disc disease with radiculopathy, MDD (major depressive disorder), Right groin pain. Current impairments include pain, ROM, balance, strength, safety, independence, activity tolerance and functional mobility. Functional limitations include decreased ability to walk, stand, transfer, negotiate stairs, and perform weight bearing activities.. Patient is motivated with good rehab potential. Skilled PT will address impairments and functional limitations in order to achieve goals. 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 Manual therapy to restore motion and function. Therapeutic exercise to improve strength and flexibility. Neuromuscular re-education for posture and balance. Therapeutic activities to return to functional activities of daily living. Electronically signed by: Mehdi Maxwell, PT Please sign and return to therapist. Thank you for your referral.
--- NOTE | 2022-01-01 08:27 | MHC.PT.DC ---
[facility] [place] Office [place] Office [place] Office [address] Leonid Browne [address] [phone] F: [phone] F: [phone] F: [phone] F: [phone] Physical Therapy Discharge Report Diagnosis: low back pain, L sided weakness Date of Surgery: n/a Date of Evaluation: 08/03/21 Date of Discharge: 08/11/21 Treatments to Date: 2 Cancellations to Date: 0 No Shows to Date: 0 Discharge Status: Visit Non-compliance Discharge Summary: Patient was unable to attend appointments consistently due to a variety of reasons. 08/11/21: significant increase in activity level. some R sided fatigue notes. difficulty initiating/following cues with LUE/LLE Patient is a 75 year old R handed female who presents with s/s consistent with low back pain and L sided weakness. She has no reported stroke but is being scheduled for an MRI due to presentation. She is very sedentary at this time and has had extensive history of falls. Patient past medical history includes Diabetes, High cholesterol, HLD (hyperlipidemia), HTN (hypertension), Hypothyroidism, Knee pain, right, Lumbar disc disease with radiculopathy, MDD (major depressive disorder), Right groin pain. Current impairments include pain, ROM, balance, strength, safety, independence, activity tolerance and functional mobility. Functional limitations include decreased ability to walk, stand, transfer, negotiate stairs, and perform weight bearing activities.. Patient is motivated with good rehab potential. Skilled PT will address impairments and functional limitations in order to achieve goals. Electronically signed by: Mehdi Maxwell, PT Please sign and return to therapist. Thank you for your referral.
== END 2022-02-24 08:14 | disposition home or self-care (01) ==
LOC: HO.PTCHIC 13:00
PROVIDERS: PCP Physician Assistant; Visit Provider Physician Assistant
DX: M51.9 Unspecified thoracic, thoracolumbar and lumbosacral intervertebral disc disorder (principal); R53.1 Weakness
CPT/HCPCS: 97110; 97163

== ENCOUNTER → 2022-02-01 09:47 | Outpatient (BNVA) | payer OTHER, SELFPAY | PROVIDERS: PCP Physician Assistant; Visit Provider Nurse Practitioner Gerontology | DX: E03.8 Other specified hypothyroidism (principal); E06.3 Autoimmune thyroiditis | CPT/HCPCS: 82947; 99212 ==

== ENCOUNTER 2022-02-01 10:43 | Outpatient (REF) | payer OTHER, SELFPAY ==
[2022-02-01 12:31] LABS: Hematocrit 42.1 % (37.0-47.0); Hemoglobin 13.7 g/dl (12.0-16.0); Mean Corpuscular HGB Conc 32.5 g/dl (31.0-35.0); Mean Corpuscular Hemoglobin 30.2 pg (27.0-33.0); Mean Corpuscular Volume 92.7 fL (80.0-98.0); Mean Platelet Volume 10.4 fL (9.4-12.3); Platelet Count 296 X10*3/uL (160-400); Red Blood Count 4.54 X10*6/uL (4.20-5.50); Red Cell Distribution Width 12.6 % (11.0-16.0)
[2022-02-01 12:43] LABS: Alanine Aminotransferase 17 U/L (0-31); Albumin Level 4.2 g/dL (3.5-5.0); Alkaline Phosphatase 76 U/L (39-117); Anion Gap 13 (12-20); Aspartate Amino Transferase 16 U/L (5-31); Bilirubin Total 0.5 mg/dL (0.0-1.0); Blood Urea Nitrogen 21 mg/dL (9-16); Calcium 9.4 mg/dL (8.4-10.2); Carbon Dioxide 29 mmol/L (22-29); Chloride 102 mmol/L (96-108); Cholesterol 163 mg/dL; Estimated Glomerular Filt Rate > 60; Glucose Fasting 151 mg/dL (60-99); HDL Cholesterol 52 mg/dL; LDL Cholesterol Calculated 84 mg/dl; Potassium 4.7 mmol/L (3.3-5.1); Sodium 139 mmol/L (135-145); Total Protein 7.8 g/dL (6.5-8.0); Triglycerides 135 mg/dL
[2022-02-01 12:46] LABS: Estimated Average Glucose 146 mg/dL; Hemoglobin A1c % 6.7 %
[2022-02-01 13:05] LABS: Thyroid Stimulating Hormone 2.32 uIU/mL (0.32-4.0)
[2022-02-01 13:06] LABS: Free T4 (Free Thyroxine) 1.34 ng/dL (0.71-1.85)
== END 2022-02-01 10:44 | disposition home or self-care (01) ==
LOC: HO.10HDL 10:43
PROVIDERS: Physician Assistant; Visit Provider Nurse Practitioner Gerontology
DX: E11.9 Type 2 diabetes mellitus without complications (principal); I10 Essential (primary) hypertension; E03.8 Other specified hypothyroidism; E06.3 Autoimmune thyroiditis; E78.5 Hyperlipidemia, unspecified; I69.354 Hemiplegia and hemiparesis following cerebral infarction affecting left non-dominant side; Z79.899 Other long term (current) drug therapy
CPT/HCPCS: 36415; 80053; 80061; 83036; 84439; 84443; 85027

== ENCOUNTER 2022-07-21 12:57 | Outpatient (REF) | payer OTHER, SELFPAY ==
--- NOTE | ~2022-07-21 | MM_ITS ---
EXAMINATION: MM SCREENING DIGITAL BREAST TOMOSYNTHESIS, BILATERAL CLINICAL INFORMATION: Screening. Asymptomatic. The lifetime risk of breast cancer based on the Tyrer-Cuzick Model is 4%. COMPARISON: Mammography: 05/13/2020, 05/08/2019, 05/01/2018 TECHNIQUE: Digital breast tomosynthesis is performed in both the craniocaudal and mediolateral oblique views along with computer-aided detection (CAD). Synthesized 2D images are generated from the tomosynthesis. FINDINGS: There are scattered areas of fibroglandular density (ACR BI-RADS breast composition Category b). There are no significant masses, abnormal calcifications, or other abnormalities. Fine fibronodular parenchymal pattern is again present. There is no interval dominant nodularity or architectural changes. Skin contours are smooth. MM/MM tomosynthesis screening BI IMPRESSION: No mammographic evidence of malignancy. ASSESSMENT: BI-RADS 2: Benign RECOMMENDATION: Routine annual mammography screening. This patient's information was entered into a reminder system with a target due date for their next mammogram.
== END 2022-07-21 12:58 | disposition home or self-care (01) ==
LOC: HO.MAMMO 12:57
PROVIDERS: PCP Physician Assistant; Visit Provider Physician Assistant
DX: Z12.31 Encounter for screening mammogram for malignant neoplasm of breast (principal)
CPT/HCPCS: 77063; 77067

== ENCOUNTER 2022-07-30 12:55 | Outpatient (RCR) | payer OTHER, SELFPAY ==
--- NOTE | 2022-10-08 15:14 | MHC.SP.ADU ---
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 Original Note: Referring provider: Jai Bryant PA-C Reason for Referral: cerebral infarction Type of Treatment: 39799 Standardized Cognitive Performance Testing, per hour Date of Plan of Treatment: 07/30/22 Onset of Symptoms/Illness: 11/07/18 Date Treatment Started: 07/30/22 Medical Diagnosis: CVA, hyperlipidemia, hypothyroidism, type 2 diabetes, diabetic neuropathy, dementia Primary Speech Language Diagnosis: R47.01 Aphasia Secondary Speech Language Diagnosis: R41.841 Cognitive communication disorder History Bolivar is a 76 year old Armenian speaking female with a reported history of a 2019 CVA and left-sided hemiplegia. Prior to the stroke, Bolivar reportedly understood a little Niuean but did not speak it. Bolivar reports since the stroke, it has been exceedingly more difficult to understand Niuean. Bolivar was referred for a speech and language evaluation by Jai Bryant PA-C of [facility] in [place], [place]. Bolivar was accompanied by her daughter, Nadira, to the evaluation on 07/30/22. Reported areas of difficulty include word finding, word pronunciation, attention, and difficulty understanding others particularly with noise and distractions present. Brittneys daughter reports that Per expressive language is often consists of repeating what others have said to her. The family reports that Bolivar has not previously seen Speech-Language Pathologist following the stroke. Bolivar reportedly completed formal education until grade 7. Medical History: CVA, hyperlipidemia, hypothyroidism, type 2 diabetes, diabetic neuropathy, dementia Social History: Highest level of education obtained: Family reports completion of grade 7 Current Living Situation: Patient reportedly stays with daughters Assistive Devices in use: Glasses/Contacts Wheelchair Past Speech Language Therapy: Family reports no hx of DIAGNOSTIC TECHNICIAN Other Therapies Seen in Current Calendar Year: None Other: Family reports Bolivar had physical therapy in 2020 Swallowing History: Comments: Patient reports no dysphagia or swallowing difficulties Reported Speech, Language, Cognition difficulties: Understanding Attention Memory Cognition Speaking Assessment Speech Production: Aphasic: Nonfluent Slow Clinical Impression: Impaired Per evaluation was administered entirely in Armenian. The administered tests are summarized below. ORAL MOTOR EXAM: Bolivar?s oral motor exam was unremarkable aside from a left facial droop and some rigid lingual movement. When asked to smile, Bolivar presents with a slight left facial droop. Bolivar?s movement, strength, and range of motion of the jaw and tongue were within functional limits. DIADOCHOKINESIS: ASSESSMENT OF MOTOR SPEECH Alternating motion rate (AMR) and sequential motion rate (SMR) were assessed. Bolivar was able to produce each of the following sounds individually with slow production requiring intermittent breaks unable to repeat the same syllable for 10 seconds: /p/, /t/, and /k/. When asked to put the sounds together to evaluate SMR, Bolivar?s speech was imprecise and jumbled. 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 Tests of Speech & Lang Adults: Test de Vocabulario de Owanka (Owanka Naming Test) Western Aphasia Battery-R Informal Armenian Translation Clinical Impression: Impaired WESTERN APHASIA BATTERY (WAB-R): The Western Aphasia Battery-R is designed to assess an individual?s language function following stroke, dementia, or other acquired neurological conditions. This original Niuean version of this test was informally translated by [employer]. in 2006. The Armenian version of the test is not standardized, therefore no scores are reported. The following subtests of the WAB-R were administered during this evaluation: Picture Description: Bolivar was presented with a line drawing picture of a picnic scene and asked to talk about what is in the picture using full sentences. Bolivar required frequent prompting and reminders during this task to provide more information and to speak in full sentences. When presented with the image and presented with the prompt, Bolivar initially responded, ?La ector junta? (the family together) omitting the verb ?estar? (to be). After being prompted with, ?Que m?s?? (what else?) Bolivar spoke slowly in fragmented speech ?en picnic? de vacation.? After being prompted a second time, Bolivar began to list items in the scene ?un darrin, jagdeep casa, un charlette?? When Bolivar was prompted again to speak in full sentences, Bolivar continued to list items using the carrier phrase, ?Hay?? (there is/there are) before transitioning back to listing items: ?Hay jagdeep casa, hay un darrin, hay un barquito? La ector ve en picnic. Un wally. Hay un wally tambien.? Auditory verbal comprehension questions: Bolivar answered yes/no auditory comprehension questions accurately in 19 out of 20 trials. At times, Bolivar elaborated on a simple ?yes? or ?no? response. For example, when asked, ??Hace calor en enero?? (Is it hot in November?), Bolivar responded ?No, frio? (no, cold). Bolivar incorrectly answered the question ??Viene marzo antes que param?? (Does January come before April?). Repetition: Bolivar was asked to repeat a variety of single words (1-3 syllables), numbers, short sentences (4-5 words), and one long sentence (10 words). Bolivar accurately repeated 3/5 single words, 1/2 numbers, 5/5 short sentences, and 0/1 long sentence. Errors in repetitions consisted of phonemic and/or semantic paraphasias. For example, ?pasame? (pass me) for ?pl?kiarra? (banana/plantain) and ?setenta? (70) for ?sesenta? (60). Commands: Bolivar followed 1-2 step commands in 4 out of 4 trials including ?Levante la mano? y ?Se?girish la ventana y luego la melany.? Phrase completion: Phonemic paraphasias were observed during this task. When presented with the phrase completion ?Keysha es en el mes de?? (Christimas is in the month of?), Bolivar answered ?dinero? (money) then self-corrected to ?diciembre? (October). Bolivar received a score of 2/6 on this task. Responsive Speech: Bolivar was asked 5 questions requiring single word answers, such as ??Con qu? escribe?? (What do you write with?) and ??D?nde se compran los sellos postales?? (Where do you buy stamps?) Bolivar did not demonstrate any paraphasias or word finding difficulty on this particular task. Bolivar received a score of 5/5. TEST DE VOCABULARIO DE BOSTON (BNT): Bolivar was shown a series of line drawings and asked to name the word. Bolivar accurately produced 8 out of 15 words independently. When she was unable to find the word independently, Bolivar benefitted from phonemic cues to produce the word. For example, Bolivar was not able to come up with the word ?esfinge? (sphinx) initially, until provided with the cue ?es___.? Semantic cues such as, ?Se encuentra en [place]? (you find it in [place]), did not assist Bolivar in this particular task. However, it is notable that Bolivar was able produce words when provided with semantic prompts in the ?Responsive Speech? subtest of the Western Aphasia Battery. At times when Bolivar was not able to find a particular word she would describe it. For example, when presented with an image of a ?fonendoscopio? (stethoscope), Bolivar responded ?la cosa para escuchar el medico.? Bolivar produced some semantic and phonemic paraphasias, stating the word ?telescopio? (telescope) for ?tr?pode? (tripod) and the word ?barcon? (ship/freight boat) for ?canoa? (canoe). Other word finding errors were not reflective of paraphasias, such as substituting ?traje? (suit/costume) for ?volc?n? (volcano). Tests of Cognition: Mccomb Cognitive Assessment (MOCA) Versi?n en Espa?ol 8.3 Clock Drawing Clinical Impression: Impaired MOCA: The Mccomb Cognitive Assessment is a screening tool to evaluate an individual for mild cognitive impairment. Bolivar demonstrated difficulty in the following areas: visuospatial/executive functioning, immediate memory, delayed memory and attention. When shown images of 3 common animals, Bolivar named each immediately. When presented orally with a list of 5 words, Bolivar was able to recall 4/5 words immediately after and 0/5 words after a delay (approximately 5 minutes). When given semantic clues such as ?parte del cuerpo? (body part) or ?tipo de tracey? (type of cloth), Bolivar was able to recall 2/5 words. When given for choices for the remaining 3 words, Bolivar selected the correct response in 2 out of 3 trials. This demonstrates that the use of memory strategies may support Bolivar?s immediate and delayed memory. Bolivar was able to accurately repeat a string of 5 numbers presented orally back to the clinician in the same order. When asked to repeat the numbers ?4-2-7? in reverse order, Bolivar responded ?3-2-5.? When asked to listen to a sequence of letters and tap hand for only the letter ?A,? Bolivar tapped her hand for each letter A along with the letters ?N,? ?J,? ?B,? and ?E.? This may demonstrate a difficulty in any or all of the following areas: sustained attention, selective attention, and receptive language. Bolivar?s difficulty in visuospatial and executive functioning tasks may be reflective of her motoric challenges with writing. CLOCK DRAWING: Bolivar was given an image of a mentasta and asked to draw a clock reading the time ?once y rosario? (11:10). Bolivar demonstrated no difficulties with this task other than fine motor control. Due to her motoric difficulties, Bolivar pointed to the space on the mentasta and vocalized the number in which she wanted the clinician to put down. Augmentative and Alternative Communication: Did Not Test Impressions and Recommendations Summary: Based on this evaluation, Bolivar presents with a mild-moderate expressive and receptive aphasia characterized by word finding errors, difficulty following instructions, semantic and phonemic paraphasias, and perseverations. Bolivar also presents with difficulty in cognitive linguistic areas including attention and memory in addition to having characteristics of apraxia of speech including distortions of words and sounds. Impact on Daily Function/Activity Limitations: Daily Activities: Moderate Interpersonal Interactions: Moderate Community: Moderate Prognosis for Improvement: Good Recommendation for Speech Therapy: Outpatient Speech Therapy Frequency/Duration: 1x/week for 12 weeks Time to Reassess: 6 months Kitchen Hand Goals: LTG 1 Bolivar will complete standardized testing of cognitive linguistic skills to obtain standardized scores and update goals as appropriate. LTG 2 Bolivar will improve her expressive language skills. LTG 3 Bolivar will improve motor speech. Short Term Goals: STG 1.1 Brittany will complete RBANS-Armenian with 100% completion to better inform goals. STG 2.1 Bolivar will name functional items with moderate support (i.e. phonemic cues) with 80% accuracy during confrontational naming tasks. STG 2.2 Bolivar will generate accurate sentences of 3 or more words with 80% accuracy when provided with moderate support. STG 3.1 Bolivar will produce functional phrases with 80% accuracy when provided with moderate assistance. Recommended Referrals to be Discussed with Primary Care Provider: Occupational Therapy Eval Recommend referral for occupational therapy due to patient?s observed and reported difficulty with fine motor control. Patient Education: Completed: Yes Patient/Caregiver Education: Described Results of Evaluation Patient expressed understanding of evaluation Patient agrees with goals and treatment plan Family/Caregivers expressed understanding of results Family/Caregivers expressed agreement with goals and treatment plan It was a pleasure to work with Bolivar and her family. If you have any questions about the contents of this report, do not hesitate to contact me at [phone] or [email or web address] Field Investigator Clinican/Clinical Fellow: Yes: Frida Paredes M.A., CF-DIAGNOSTIC TECHNICIAN Supervisory Statement: Yes Speech Language Pathologist: Cookie Rajan M.A., CCC-DIAGNOSTIC TECHNICIAN
== END 2022-11-12 13:44 | disposition still patient (30) ==
LOC: HO.SH 12:55
PROVIDERS: Visit Provider Physician Assistant
DX: I63.9 Cerebral infarction, unspecified (principal)
CPT/HCPCS: 96125

== ENCOUNTER 2022-09-02 16:55 | Outpatient (REF) | payer OTHER, SELFPAY ==
[2022-09-03 12:32] LABS: Appearance Urine Cloudy; Color Urine Yellow; Glucose Urine UA Negative (Negative); Leukocyte Esterase Urine Moderate (2+) (Negative); Nitrite Urine Negative (Negative); PH 6.5 (5.0-9.0); UMIC TRIGGER UACC YES; Urine Blood Negative (Negative); Urine Ketones Negative (Negative); Urine Protein Negative (Neg-Trace)
[2022-09-03 12:49] LABS: Bacteria Urine 4+ (None Seen); Hyaline Casts Urine 0-2 /LPF (0-2); RBC Urine 0-2 /HPF (0-2); UACC Culture Trigger YES; WBC Urine >50 /HPF (0-5)
== END 2022-09-02 16:56 | disposition home or self-care (01) ==
LOC: HO.LAB 16:55
PROVIDERS: PCP Physician Assistant; Visit Provider Physician Assistant
DX: R30.0 Dysuria (principal)
CPT/HCPCS: 81001; 87086; 87088; 87186

== ENCOUNTER 2022-09-04 13:47 | Outpatient (REF) | payer OTHER, SELFPAY ==
[2022-09-04 14:01] LABS: Appearance Urine Cloudy; Color Urine Yellow; Glucose Urine UA Negative (Negative); Leukocyte Esterase Urine Moderate (2+) (Negative); Nitrite Urine Negative (Negative); PH 5.5 (5.0-9.0); UMIC TRIGGER UACC YES; Urine Blood Small (1+) (Negative); Urine Ketones Negative (Negative); Urine Protein Negative (Neg-Trace)
[2022-09-04 14:06] LABS: Bacteria Urine None Seen (None Seen); Hyaline Casts Urine 0-2 /LPF (0-2); UACC Culture Trigger YES; WBC Urine >50 /HPF (0-5)
== END 2022-09-04 13:48 | disposition home or self-care (01) ==
LOC: HO.LNP 13:47
PROVIDERS: Visit Provider Physician Assistant
DX: R30.0 Dysuria (principal); M54.50 Low back pain, unspecified
CPT/HCPCS: 81001; 81003

== ENCOUNTER 2022-10-01 16:07 | Outpatient (REF) | payer OTHER, SELFPAY ==
[2022-10-01 16:17] LABS: Appearance Urine Cloudy; Color Urine Yellow; Glucose Urine UA Negative (Negative); Leukocyte Esterase Urine Large (3+) (Negative); Nitrite Urine Negative (Negative); PH 6.5 (5.0-9.0); UMIC TRIGGER UACC YES; Urine Blood Trace (Negative); Urine Ketones Negative (Negative); Urine Protein Negative (Neg-Trace)
[2022-10-01 16:19] LABS: Bacteria Urine 3+ (None Seen); Hyaline Casts Urine 0-2 /LPF (0-2); RBC Urine 0-2 /HPF (0-2); UACC Culture Trigger YES; WBC Urine >50 /HPF (0-5)
== END 2022-10-01 16:08 | disposition home or self-care (01) ==
LOC: HO.LNP 16:07
PROVIDERS: Visit Provider Physician Assistant
DX: R30.0 Dysuria (principal); M54.50 Low back pain, unspecified
CPT/HCPCS: 81001; 87086; 87088; 87186

== ENCOUNTER 2023-11-05 00:23 | Emergency (ER) | payer OTHER, SELFPAY ==
[2023-11-05 00:24] VITALS: BP 154/76; PULSE 75; RESP 18; TEMP 36.6; O2SAT 96; BMI 46.0
== END 2023-11-05 04:06 | disposition left against medical advice (07) ==
PROVIDERS: Emergency Provider Emergency Medicine
DX: M79.604 Pain in right leg (principal)
CPT/HCPCS: 99281